=== PATIENT | male | born 1940 | race Caucasian/White ===

== ENCOUNTER 2017-01-31 10:36 | Observation (INO) ==
[2017-01-31] MEDS ORDERED: Naloxone 0.4 MG/ML INJ IVP PRN (16:55)
[2017-01-31] MEDS ORDERED: Acetaminophen 325 MG TABLET PO PRN (16:55)
[2017-01-31] MEDS ORDERED: Ondansetron 4 MG/2 ML VIAL IVP PRN (16:55)
[2017-01-31] MEDS ORDERED: *HR* Morphine 2 MG/ML SYRINGE IVP PRN (16:55)
[2017-01-31] MEDS ORDERED: Aspirin Enteric Coated 81 MG Tablet PO SCH (17:00)
[2017-01-31] MEDS ORDERED: *HR* Dextrose 50 % in Water (Syg) 50 ML SYRINGE IVP PRN (17:01)
[2017-01-31] MEDS ORDERED: Dextrose Gel 15 GM PO PRN ×2 (17:01)
[2017-01-31] MEDS ORDERED: D5% in Water 1,000 ML IVC PRN (17:01)
--- NOTE | 2017-01-31 17:03 | Internal Med History&Physical ---
Date of Encounter: 01/31/17 Time of Encounter: 17:02 Assessment and Plan (1) Urinary retention Current visit: Yes Status: Acute 1 patient awakened approximately 3 AM today was unable to void has history of prostate cancer with radiation treatment has significant radiation complications. Jennings catheter placed we will continue with Jennings, irrigation 2 urology consulted (2) Cystitis with hematuria Current visit: Yes Status: Acute 1 patient has history of prostate cancer with radiation treatment significant radiation complication he awoken this morning and found that his underwear was saturated with blood he was unable to urinate. Jennings catheter was placed urinalysis revealed large amount of blood and nitrates few leuk Estrace, 2+ bacteria. 2. We will obtain urine culture results from [facility] tomorrow 3 we will continue with Rocephin IV 4 urology consultation 5 we will hold ASA for now dt hematuria (3) History of prostate cancer Current visit: No Status: Chronic 1 patient has history of prostate cancer with radiation treatment significant radiation complications. PSA undetectable in December 2015. Urology presently consult and patient will follow up as outpatient (4) COPD (chronic obstructive pulmonary disease) Current visit: No Status: Chronic Patient has history of COPD presently stable he is oxygen at night we will continue with oxygen and maintain SPO2 greater than 92% 2 continue with bronchodilators Qualifiers: COPD type: emphysema Emphysema type: unspecified Qualified Code(s): J43.9 - Emphysema, unspecified (5) Diabetes mellitus Current visit: No Status: Chronic 1 continue with basal and sliding scale insulin Accu-Cheks before meals at bedtime goal is to maintain postprandial less than 180 2 diabetic diet Qualifiers: Diabetes mellitus type: type 2 Diabetes mellitus complication status: without complication Diabetes mellitus skilled nursing insulin use: with skilled nursing use Qualified Code(s): E11.9 - Type 2 diabetes mellitus without complications ; Z79.4 - prison (current) use of insulin (6) Hyperlipidemia Current visit: No Status: Chronic 1continue with statin Qualifiers: Hyperlipidemia type: unspecified Qualified Code(s): E78.5 - Hyperlipidemia , unspecified (7) DVT prophylaxis Current visit: Yes Status: Acute 1 no anticoagulation at this time due to patient has hematuria. Encourage ambulation, SCD Internal Medicine - H&P: HPI Chief complaint: Difficulty urinating blood and urine Admitted From: Hospital to Hospital Transfer Plans for Post Hospital Care: Home History of present illness: Mr. Gardiner is a 77 year old male according to the patient she awoke proximally 3 AM this morning his underwear was saturated with blood. He was unable to initiate a urinary stream. He has had history of hematuria and urinary blockage in the past. He went to [facility] where three-way Jennings was placed and irrigated. Lab work was unremarkable however urinalysis did reveal large mother blood nitrates a few leuk esterase and 2+ bacteria patient was started on a gram of Rocephin IV. He was then transferred to [facility] for further treatment however urology not available he then was transferred to [facility] for further treatment. Upon arrival to the floor patient's catheter no longer draining Dr. Ely's S patient had nursing irrigate Jennings which returned a large clots in urine began to flow. Upon assessment patient's complaining of pain within urethra. Jennings with sabina colored urine. Patient denies any chest pain short of breath nausea vomiting fevers or chills. Dr. Cuello is at bedside, he is replacing Jennings catheter. I reviewed this case with Dr. Ely who agrees with plan. Past Med Surg Social Fam HX - Past Medical History Medical history: CHF, COPD, coronary artery disease, diabetes, kidney stones Psychiatric history: no psych history - Past Surgical History Surgical History: coronary bypass (CABG), prostatectomy, ureteral stent - Social History Smoking Status: Former smoker Smokeless Tobacco Status: No Alcohol use: none Drug use: none - Family History Father History Unknown: Yes Internal Medicine - H&P: Meds Aspirin Enteric Coated [Aspirin EC] 81 mg PO DAILY 05/09/16 [History] Atorvastatin Calcium [Lipitor] 20 mg PO DAILY 05/09/16 [History] Insulin ASPART [Novolog] 10 unit SQ TID 05/09/16 [History] Insulin Glargine,Hum.rec.anlog [Lantus Solostar] 27 unit SQ HS 05/09/16 [History ] Multivitamin [One Daily Essential] 1 tab PO DAILY 05/09/16 [History] Paroxetine HCl [Paroxetine] 40 mg PO DAILY 05/09/16 [History] Potassium Chloride 10 meq PO BID 05/09/16 [History] Pyridoxine HCl [Vitamin B-6] 100 mg PO DAILY 05/09/16 [History] Furosemide [Lasix] 40 mg PO DAILY 01/31/17 [History] Ipratropium/Albuterol Sulfate [Combivent Respimat Inhal [place]] 2 puff IH QID 12/15 [History] Olopatadine HCl [Pataday] 1 drop OP DAILY 01/31/17 [History] Oxycodone HCl/Acetaminophen [Percocet 5-325 mg Tablet] 1 tab PO Q6H PRN [History] Allergies No Known Allergies Allergy (Verified 01/31/17 14:30) All Systems PM: A 10-system review of systems was performed and is negative for pertinent findings except as documented above in the HPI. - Constitutional Constitutional: no chills, no fever(s), no night sweats - EENT Eyes: no change in vision, no discharge, no pain, no photophobia - Cardiovascular Cardiovascular ROS IM: no chest pain, no diaphoresis, no dyspnea, no lightheadedness, no palpitations, no syncope - Respiratory Respiratory: no cough, no dyspnea, no wheezing, no excessive phlegm production - Gastrointestinal Gastrointestinal: no abdominal pain, no diarrhea, no hematemesis, no hematochezia, no melena, no nausea, no vomiting - Genitourinary Genitourinary ROS male: difficulty urinating, hematuria - Musculoskeletal Musculoskeletal ROS IM: no numbness, no tingling - Integumentary Integumentary IM: no rash, no unusual bruising - Neurological Neurological ROS: no confusion, no convulsions, no focal weakness, no numbness, no tingling, no tremor(s) - Hematologic/Lymphatic Hematologic/Lymphatic: no easy bruising - Constitutional Vitals: Temp Pulse Resp BP Pulse Ox 97.7 F 77 18 121/66 93 01/31/17 14:21 01/31/17 14:21 01/31/17 14:21 01/31/17 14:21 01/31/17 14:21 General appearance: Present: mild distress, A&O X 3 - Head Head exam: Present: atraumatic, normocephalic - Eye Eye exam: Present: PERRL, conjuntiva pink, sclera anicteric Pupils: Present: PERRL - Neck Neck exam general surgery: Present: supple, trachea midline. Absent: lymphadenopathy - Respiratory Respiratory exam: Present: CTAB. Absent: accessory muscle use, rales, rhonchi, wheezes - Cardiovascular Cardiovascular exam: Present: RRR, +S1, +S2. Absent: diastolic murmur, gallop, rubs, systolic murmur - GI/Abdominal GI/Abdominal exam: Present: normal bowel sounds, soft, no peritoneal signs. Absent: distended, tenderness - Additional comments: Jennings in place with sabina color urine draining - Extremities Exam Extremities exam: Present: warm, radial pulses palpable and symetrical. Absent : calf tenderness, cyanotic, pedal edema - Neurological Exam Neurological exam: Present: CN II-XII intact, oriented X3, no focal deficits. Absent: pronater drift, facial droop, speech deficit - Skin Skin exam: Present: dry, intact Internal Med - H&P Results - Labs Labs: Lab work from 01/31/2017 [facility] CBC WBC 10.6 hemoglobin 15.5 hematocrit 45.6 platelets 243 Chemistry sodium 143 potassium 4.2 chloride 103I carb 34 BUN 19 creatinine 1.01 glucose 222 GFR is greater than 60 Rustam's PT 13.1 INR 1.11 APTT 24.2
--- NOTE | 2017-01-31 17:17 | Urology - Consult Note ---
Date of Encounter: 01/31/17 Time of Encounter: 17:15 Urology CN:HPI Consult date: 01/31/17 Reason for consult Urology: Gross Hematuria Requesting physician: Roxane Ledbetter History of present illness: Rigoberto is a 77-year-old male with a history of prostate cancer status post radiation therapy. 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 Patient went to an outside hospital last night where a 16-Persian 3-way catheter was placed. Patient was transferred here for further evaluation. Patient is in significant discomfort from poorly draining catheter. Nursing staff had attempted to irrigate the catheter multiple times which was unsuccessful. This is not too surprising given the small diameter of the catheter. Past Med Surg Social Fam HX - Past Medical History Medical history: CHF, COPD, coronary artery disease, diabetes, kidney stones Psychiatric history: no psych history - Past Surgical History Surgical History: coronary bypass (CABG), prostatectomy, ureteral stent - Social History Smoking Status: Former smoker Smokeless Tobacco Status: No Alcohol use: none Drug use: none - Family History Father History Unknown: Yes Medications and Allergies Aspirin Enteric Coated [Aspirin EC] 81 mg PO DAILY 05/09/16 [History] Atorvastatin Calcium [Lipitor] 20 mg PO DAILY 05/09/16 [History] Insulin ASPART [Novolog] 10 unit SQ TID 05/09/16 [History] Insulin Glargine,Hum.rec.anlog [Lantus Solostar] 27 unit SQ HS 05/09/16 [History ] Multivitamin [One Daily Essential] 1 tab PO DAILY 05/09/16 [History] Paroxetine HCl [Paroxetine] 40 mg PO DAILY 05/09/16 [History] Potassium Chloride 10 meq PO BID 05/09/16 [History] Pyridoxine HCl [Vitamin B-6] 100 mg PO DAILY 05/09/16 [History] Furosemide [Lasix] 40 mg PO DAILY 01/31/17 [History] Ipratropium/Albuterol Sulfate [Combivent Respimat Inhal [place]] 2 puff IH QID 12/15 [History] Olopatadine HCl [Pataday] 1 drop OP DAILY 01/31/17 [History] Oxycodone HCl/Acetaminophen [Percocet 5-325 mg Tablet] 1 tab PO Q6H PRN [History] Allergies No Known Allergies Allergy (Verified 01/31/17 14:30) Review of Systems - Constitutional no chills - EENT Nose, mouth and throat: no dizziness - Cardiovascular no chest pain - Respiratory no cough - Gastrointestinal abdominal pain - Genitourinary as per HPI - Musculoskeletal no back pain - Integumentary no erythema Exam Initial Vital Signs Temp Pulse Resp BP Pulse Ox 97.7 F 77 18 121/66 93 01/31/17 14:21 01/31/17 14:21 01/31/17 14:21 01/31/17 14:21 01/31/17 14:21 - General physical appearance Present: well developed - Neck Present: no masses - Respiratory Present: normal respiratory effort - Cardiovascular Cardiovascular exam IM: RRR - Abdomen Abdomen: Present: soft - Genitourinary other (cath in place with clear urine in tubing) Urology Results - Labs Abnormal lab results POC Glucose 174 (58-89) H 01/31/17 14:42 All other labs normal. Consult Discharge Plan - Plan Referrals: NO,PCP [Primary Care Provider] -
--- NOTE | 2017-01-31 17:19 | Event Note ---
Date of Encounter: 01/31/17 Time of Encounter: 17:17 Please attach this note to the consult note as I was unable to enter the assessment and plan secondary to another person being in the chart. Assessment #1 urinary clot retention secondary to radiation cystitis. -Will remove catheter and place larger 3-way catheter. The 16-[place] catheter was removed. Upon removal of this catheter the patient voided across the room and passed multiple clots. I then prepped and draped the patient in sterile fashion. I attempted to place a 24-[place] hematuria catheter which would not pass beyond the meatus. I then had to dilate the patient's urethral meatus to 24-[place]. Then with a significant amount of difficulty in the meatus as well as the prosthetic urethra I was able to pass the 22-[place] 3-way catheter. 500 mL's of clear urine was returned. I then manually irrigated the catheter with a small amount of clots returned. Patient' s urine remained clear on slow irrigation Plan to keep the catheter in place at least overnight.
[2017-01-31] MEDS: (Ipratropium/Albuterol Sulfate [Combivent Respimat In) IH SCH ×2 (18:02→20:19)
[2017-01-31] MEDS: *HR* HYDROcodone/Acet 5/325 mg TABLET PO PRN (18:12)
--- NOTE | 2017-01-31 18:54 | Event Note ---
Date of Encounter: 01/31/17 Time of Encounter: 18:54 Patient seen and examined with nurse practitioner. Agree with assessment and plan.
[2017-01-31] MEDS: Insulin DETEMIR 100 UNIT/ML X5UNITS SQ SCH (20:19)
[2017-01-31] MEDS: Insulin LISPRO 300 UNITS/3 ML VIAL SQ SCH (20:20)
[2017-01-31] MEDS ORDERED: Insulin DETEMIR 100 UNIT/ML X5UNITS SQ SCH (21:00)
[2017-02-01] MEDS ORDERED: 0.9 % Sodium Chloride 1,000 ML ONE ×2 (04:09→04:10)
[2017-02-01] MEDS: *HR* HYDROcodone/Acet 5/325 mg TABLET PO PRN ×4 (04:15→22:44)
[2017-02-01 04:55] LABS: Basophils % 0.4 %; Eosinophils # 0.2 K/mcL (0.0-0.6); Eosinophils % 1.8 %; Hematocrit 44.4 % (37.5-50.1); Hemoglobin 14.4 g/dL (12.9-16.9); Immature Granulocytes % 0.7 % (0-4); Lymphocytes # 1.4 K/mcL (0.6-4.6); Lymphocytes % 13.1 %; Mean Corpuscular HGB Conc 32.4 g/dL (31.6-35.5); Mean Corpuscular Hemoglobin 31.1 pg (28.0-33.3); Mean Corpuscular Volume 95.9 fL (83.0-100.0); Mean Platelet Volume 10.1 fL (9.4-12.4); Monocytes # 1.2 K/mcL (0.0-1.3); Monocytes % 11.5 %; Neutrophils # 7.6 K/mcL (1.6-8.9); Platelet Count 230 K/mcL (140-400); Red Blood Count 4.63 M/mcL (4.19-5.50); Segmented Neutrophils % 72.5 %
[2017-02-01 05:19] LABS: BUN/Creatinine Ratio 22 (6-26); Blood Urea Nitrogen 22 mg/dL (8-26); Calcium 8.9 mg/dL (8.6-10.8); Carbon Dioxide 30 mEq/L (19-29); Chloride 104 mEq/L (98-109); Glucose 154 mg/dL (70-99); Osmolality,Calculated 298 (280-300); Potassium 4.2 mEq/L (3.5-4.5); Sodium 141 mEq/L (136-145); eGFR For African Americans > 60 (> 60); eGFR For Non-African Americans > 60 (> 60)
[2017-02-01] MEDS: Multivit/Ca/Min/Fe/FA 1 TAB TABLET PO SCH (08:10)
[2017-02-01] MEDS: Insulin LISPRO 300 UNITS/3 ML VIAL SQ SCH ×4 (08:28→20:46)
--- NOTE | 2017-02-01 08:33 | Urology Progress Note ---
Date of Encounter: 02/01/17 Time of Encounter: 08:32 - Assessment and Plan (1) Gross hematuria Current Visit: Yes Status: Acute Assessment and plan: continue catheter. will stop irrigation. reeval this afternoon Progress Note Narrative: Patient seen. Urine remained clear overnight Objective Initial Vital Signs Temp Pulse Resp BP Pulse Ox 97.7 F 77 18 121/66 93 01/31/17 14:21 01/31/17 14:21 01/31/17 14:21 01/31/17 14:21 01/31/17 14:21 - General physical appearance Present: well developed - Abdomen Present: soft - Genitourinary Present: other (urine clear in tubing on very slow drip) - Labs 02/01/17 03:53 02/01/17 03:53 Diabetes panel 02/01/17 Range/Units 03:53 Sodium 141 (136-145) mEq/L Potassium 4.2 (3.5-4.5) mEq/L Chloride 104 (98-109) mEq/L Carbon Dioxide 30 H (19-29) mEq/L BUN 22 (8-26) mg/dL Creatinine 0.98 (0.72-1.25) mg/dL Glucose 154 H (70-99) mg/dL Calcium 8.9 (8.6-10.8) mg/dL Calcium panel 02/01/17 Range/Units 03:53 Calcium 8.9 (8.6-10.8) mg/dL Pituitary panel 02/01/17 Range/Units 03:53 Sodium 141 (136-145) mEq/L Potassium 4.2 (3.5-4.5) mEq/L Chloride 104 (98-109) mEq/L Carbon Dioxide 30 H (19-29) mEq/L BUN 22 (8-26) mg/dL Creatinine 0.98 (0.72-1.25) mg/dL Glucose 154 H (70-99) mg/dL Calcium 8.9 (8.6-10.8) mg/dL Adrenal panel 02/01/17 Range/Units 03:53 Sodium 141 (136-145) mEq/L Potassium 4.2 (3.5-4.5) mEq/L Chloride 104 (98-109) mEq/L Carbon Dioxide 30 H (19-29) mEq/L BUN 22 (8-26) mg/dL Creatinine 0.98 (0.72-1.25) mg/dL Glucose 154 H (70-99) mg/dL Calcium 8.9 (8.6-10.8) mg/dL Consult Discharge Plan - Plan Referrals: NO,PCP [Primary Care Provider] -
[2017-02-01] MEDS ORDERED: Furosemide 40 MG TABLET PO SCH (09:00)
[2017-02-01] MEDS: (Ipratropium/Albuterol Sulfate [Combivent Respimat In) IH SCH ×2 (14:12→20:46)
--- NOTE | 2017-02-01 14:39 | Internal Med Progress Note ---
<Shiv Garcia - Last Filed: 02/01/17 15:07> Date of Encounter: 02/01/17 Time of Encounter: 11:00 - Assessment and plan (1) Acute cystitis with hematuria Current Visit: Yes Status: Acute Assessment and plan: Patient had a catheter exchange yesterday currently with a 22-[place]gian three-way catheter. No further clots irrigation from his bladder. Tolerating current bladder irrigation. - Dr. Mane is involved in the patient care. - Continue to monitor urinary output - Continue Rocephin - monitor renal function with am labs. (2) History of prostate cancer Current Visit: No Status: Chronic Assessment and plan: Current problem. Undergoing radiation therapy. (3) COPD (chronic obstructive pulmonary disease) Current Visit: No Status: Chronic Assessment and plan: Known history of COPD, patient wears 3 L nasal cannula oxygen at home. - Continue DuoNeb therapy - Continue oxygen, oxygen saturations between 89 and 92%. - Continue home inhalers. Qualifiers: COPD type: emphysema Emphysema type: unspecified Qualified Code(s): J43.9 - Emphysema, unspecified (4) Diabetes mellitus Current Visit: No Status: Chronic Assessment and plan: Known type II diabetic with current glucose is controlled. Plan: - Continue Levemir 14 units at daily at bedtime -Continue low-dose sliding scale insulin. 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 Continue Qualifiers: Hyperlipidemia type: unspecified Qualified Code(s): E78.5 - Hyperlipidemia , unspecified (6) CAD (coronary artery disease) Current Visit: Yes Status: Acute Assessment and plan: Patient has a history of coronary artery disease with previous DC and CABG. Plan: - Continue atorvastatin 20 mg by mouth daily - Hold aspirin. Qualifiers: Qualified Code(s): I25.10 - Atherosclerotic heart disease of [place] coronary artery without angina pectoris (7) DVT prophylaxis Current Visit: Yes Status: Acute Assessment and plan: Hold anticoagulation as the patient had hematuria - Subjective Interval history: Mr. Gardiner 77-year-old male seen and evaluated patient bedside this morning. He complained of a headache which is resolved after he has been asleep for a limited time. He also complains of discomfort around the glans of his penis after Jennings catheter insertion. He denies any nausea, vomiting, diarrhea or constipation. Denies any abdominal pains chest pains or any other major concerns. He feels that his care has been appropriate and he is glad that there is no more blood in his urine. - Constitutional Vitals: Temp Pulse Resp BP Pulse Ox 98.1 F 59 17 96/53 92 02/01/17 14:09 02/01/17 14:09 02/01/17 14:09 02/01/17 14:02/01/17 14:09 General appearance: Present: mild distress, A&O X 3, morbidly obese - Head Head exam: Present: atraumatic, normocephalic - Eye Eye exam: Present: PERRL, conjuntiva pink, sclera anicteric Pupils: Present: PERRL - ENT ENT exam: Present: mucous membranes moist - Neck Neck exam general surgery: Present: supple, trachea midline. Absent: lymphadenopathy - Respiratory Respiratory exam: Present: CTAB. Absent: accessory muscle use, rales, rhonchi, wheezes - Cardiovascular Cardiovascular exam: Present: RRR, +S1, +S2. Absent: diastolic murmur, gallop, rubs, systolic murmur - GI/Abdominal GI/Abdominal exam: Present: normal bowel sounds, soft. Absent: tenderness, no peritoneal signs - Extremities Exam Extremities exam: Present: warm, radial pulses palpable and symetrical. Absent : calf tenderness, cyanotic, pedal edema - Neurological Exam Neurological exam: Present: alert, oriented X3, no focal deficits. Absent: pronater drift, facial droop, speech deficit - Psychiatric Psychiatric exam: Present: normal affect, normal mood Internal Medicine: Result - Labs CBC & Chem 7: 02/01/17 03:53 02/01/17 03:53 Labs: Short CBC 02/01/17 Range/Units 03:53 WBC 10.5 (4.3-11.1) K/mcL Hgb 14.4 (12.9-16.9) g/dL Hct 44.4 (37.5-50.1) % Plt Count 230 (140-400) K/mcL Neutrophils # 7.6 (1.6-8.9) K/mcL [facility] 02/01/17 03:53 Sodium 141 Potassium 4.2 Chloride 104 Carbon Dioxide 30 H BUN 22 Creatinine 0.98 Glucose 154 H Calcium 8.9 Consult Discharge Plan - Plan Referrals: NO,PCP [Primary Care Provider] - <Giovany Foster - Last Filed: 02/01/17 18:01> Date of Encounter: 02/01/17 - Constitutional Vitals: Temp Pulse Resp BP Pulse Ox 98.1 F 59 17 96/53 92 02/01/17 14:02/01/17 14:02/01/17 14:02/01/17 14:02/01/17 14:09 Internal Medicine: Result - Labs CBC & Chem 7: 02/01/17 03:53 02/01/17 03:53 Labs: Short CBC 02/01/17 Range/Units 03:53 WBC 10.5 (4.3-11.1) K/mcL Hgb 14.4 (12.9-16.9) g/dL Hct 44.4 (37.5-50.1) % Plt Count 230 (140-400) K/mcL Neutrophils # 7.6 (1.6-8.9) K/mcL [facility] 02/01/17 03:53 Sodium 141 Potassium 4.2 Chloride 104 Carbon Dioxide 30 H BUN 22 Creatinine 0.98 Glucose 154 H Calcium 8.9 - Attending Attestation I examined this patient and my medical decision-making was reviewed with the Resident Physician, Dr Garcia. I agree with the documented findings, disposition and treatment plan as described except to the extent set forth below. Patient presented to the hospital with hematuria and blood clots. Currently he has a three-way Jennings catheter and continuous bladder irrigation. Plan: We will hold CBI. Follow-up with urologist. Continue with IV antibiotics.
[2017-02-01] MEDS: Furosemide 40 MG TABLET PO SCH (18:47)
[2017-02-01] MEDS: Insulin DETEMIR 100 UNIT/ML X5UNITS SQ SCH (20:51)
[2017-02-01 22:58] LABS: Bilirubin,Urine Negative (Negative); Blood,Urine Large (Negative); Clarity,Urine Clear (Clear); Color,Urine Yellow (Yellow); Glucose,Urine (UA) Normal (Normal); Ketones,Urine Negative (Negative); Leukocyte Esterase,Urine Moderate (Negative); Nitrite,Urine Negative (Negative); Protein,Urine Negative (Neg-Trace); Urobilinogen,Urine Normal (Normal)
[2017-02-01 23:01] LABS: Bacteria,Urine None Seen per hpf (None-Few); Hyaline Casts,Urine None Seen per lpf (None-Few); RBC,Urine 15-30 per hpf (0-3); Squamous Epithelial Cell,Urine Moderate per lpf (None-Few); WBC,Urine 30-50 per hpf (0-3)
[2017-02-02] MEDS: *HR* HYDROcodone/Acet 5/325 mg TABLET PO PRN ×2 (03:50→09:22)
[2017-02-02 04:08] LABS: Basophils % 0.3 %; Eosinophils # 0.4 K/mcL (0.0-0.6); Eosinophils % 3.6 %; Hematocrit 42.5 % (37.5-50.1); Hemoglobin 13.8 g/dL (12.9-16.9); Immature Granulocytes % 1.1 % (0-4); Lymphocytes # 1.8 K/mcL (0.6-4.6); Lymphocytes % 16.9 %; Mean Corpuscular HGB Conc 32.5 g/dL (31.6-35.5); Mean Corpuscular Hemoglobin 30.9 pg (28.0-33.3); Mean Corpuscular Volume 95.1 fL (83.0-100.0); Mean Platelet Volume 9.9 fL (9.4-12.4); Monocytes # 1.1 K/mcL (0.0-1.3); Monocytes % 10.9 %; Platelet Count 221 K/mcL (140-400); Red Blood Count 4.47 M/mcL (4.19-5.50); Red Cell Distribution Width 13.6 % (11.5-14.5); Segmented Neutrophils % 67.2 %
[2017-02-02 04:19] LABS: Alanine Aminotransferase 21 Units/L (0-55); Albumin 2.7 g/dL (3.5-5.0); Albumin/Globulin Ratio 0.7 (1.1-2.2); Alkaline Phosphatase 66 Units/L (38-126); Aspartate Amino Transferase 19 Units/L (5-34); BUN/Creatinine Ratio 21 (6-26); Bilirubin,Total 0.5 mg/dL (0.2-1.2); Blood Urea Nitrogen 21 mg/dL (8-26); Calcium 8.7 mg/dL (8.6-10.8); Carbon Dioxide 30 mEq/L (19-29); Chloride 99 mEq/L (98-109); Globulin 4.1 g/dL (2.4-3.5); Glucose 128 mg/dL (70-99); Osmolality,Calculated 291 (280-300); Sodium 138 mEq/L (136-145); Total Protein 6.8 g/dL (6.0-8.3); eGFR For African Americans > 60 (> 60); eGFR For Non-African Americans > 60 (> 60)
[2017-02-02 06:36] VITALS: BP 148/66
--- NOTE | 2017-02-02 07:09 | Urology Progress Note ---
Date of Encounter: 02/02/17 Time of Encounter: 07:08 - Assessment and Plan (1) Gross hematuria Current Visit: Yes Status: Acute Assessment and plan: cath to be removed. f/u with Dr. Conway in 2-3 weeks. Usually in [facility] Progress Note Narrative: patient seen. urine clear. order written for cath removal. Objective Initial Vital Signs Temp Pulse Resp BP Pulse Ox 97.7 F 77 18 121/66 93 01/31/17 14:21 01/31/17 14:21 01/31/17 14:01/31/17 14:01/31/17 14:21 - General physical appearance Present: well developed - Abdomen Present: soft - Labs 02/02/17 03:16 02/02/17 03:16 Diabetes panel 02/02/17 Range/Units 03:16 Sodium 138 (136-145) mEq/L Potassium 4.0 (3.5-4.5) mEq/L Chloride 99 (98-109) mEq/L Carbon Dioxide 30 H (19-29) mEq/L BUN 21 (8-26) mg/dL Creatinine 1.00 (0.72-1.25) mg/dL Glucose 128 H (70-99) mg/dL Calcium 8.7 (8.6-10.8) mg/dL AST 19 (5-34) Units/L ALT 21 (0-55) Units/L Alkaline Phosphatase 66 (38-126) Units/L Albumin 2.7 L (3.5-5.0) g/dL Calcium panel 02/02/17 Range/Units 03:16 Calcium 8.7 (8.6-10.8) mg/dL Albumin 2.7 L (3.5-5.0) g/dL Pituitary panel 02/02/17 Range/Units 03:16 Sodium 138 (136-145) mEq/L Potassium 4.0 (3.5-4.5) mEq/L Chloride 99 (98-109) mEq/L Carbon Dioxide 30 H (19-29) mEq/L BUN 21 (8-26) mg/dL Creatinine 1.00 (0.72-1.25) mg/dL Glucose 128 H (70-99) mg/dL Calcium 8.7 (8.6-10.8) mg/dL Adrenal panel 02/02/17 Range/Units 03:16 Sodium 138 (136-145) mEq/L Potassium 4.0 (3.5-4.5) mEq/L Chloride 99 (98-109) mEq/L Carbon Dioxide 30 H (19-29) mEq/L BUN 21 (8-26) mg/dL Creatinine 1.00 (0.72-1.25) mg/dL Glucose 128 H (70-99) mg/dL Calcium 8.7 (8.6-10.8) mg/dL Total Bilirubin 0.5 (0.2-1.2) mg/dL AST 19 (5-34) Units/L ALT 21 (0-55) Units/L Alkaline Phosphatase 66 (38-126) Units/L Albumin 2.7 L (3.5-5.0) g/dL Consult Discharge Plan - Plan Referrals: NO,PCP [Primary Care Provider] -
[2017-02-02] MEDS: Multivit/Ca/Min/Fe/FA 1 TAB TABLET PO SCH (08:06)
[2017-02-02] MEDS: Insulin LISPRO 300 UNITS/3 ML VIAL SQ SCH (08:06)
[2017-02-02] MEDS: Furosemide 40 MG TABLET PO SCH (08:20)
--- NOTE | 2017-02-02 08:28 | Discharge Summary ---
<Shiv Garcia - Last Filed: 02/02/17 13:14> Date of Encounter: 02/02/17 Time of Encounter: 08:26 - Discharge Diagnosis (1) Acute cystitis with hematuria Priority: Primary Status: Acute (2) History of prostate cancer Priority: Secondary Status: Chronic (3) COPD (chronic obstructive pulmonary disease) Priority: Secondary Status: Chronic Qualifiers: COPD type: emphysema Emphysema type: unspecified Qualified Code(s): J43.9 - Emphysema, unspecified (4) Diabetes mellitus Priority: Secondary Status: Chronic Qualifiers: Diabetes mellitus type: type 2 Diabetes mellitus complication status: without complication Diabetes mellitus prison insulin use: with prison use Qualified Code(s): E11.9 - Type 2 diabetes mellitus without complications ; 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 (5) Hyperlipidemia Priority: Secondary Status: Chronic Qualifiers: Hyperlipidemia type: unspecified Qualified Code(s): E78.5 - Hyperlipidemia , unspecified (6) CAD (coronary artery disease) Priority: Secondary Status: Acute Qualifiers: Qualified Code(s): I25.10 - Atherosclerotic heart disease of [place] coronary artery without angina pectoris - Discharge Medications Home Medications: Aspirin Enteric Coated [Aspirin EC] 81 mg PO DAILY 05/09/16 [History] Atorvastatin Calcium [Lipitor] 20 mg PO DAILY 05/09/16 [History] Insulin ASPART [Novolog] 10 unit SQ TID 05/09/16 [History] Insulin Glargine,Hum.rec.anlog [Lantus Solostar] 27 unit SQ HS 05/09/16 [History ] Multivitamin [One Daily Essential] 1 tab PO DAILY 05/09/16 [History] Paroxetine HCl [Paroxetine] 40 mg PO DAILY 05/09/16 [History] Potassium Chloride 10 meq PO BID 05/09/16 [History] Pyridoxine HCl [Vitamin B-6] 100 mg PO DAILY 05/09/16 [History] Furosemide [Lasix] 40 mg PO DAILY 01/31/17 [History] Ipratropium/Albuterol Sulfate [Combivent Respimat Inhal [place]] 2 puff IH QID 12/15 [History] Olopatadine HCl [Pataday] 1 drop OP DAILY 01/31/17 [History] Oxycodone HCl/Acetaminophen [Percocet 5-325 mg Tablet] 1 tab PO Q6H PRN [History] Allergies/Adverse Reactions: Allergies No Known Allergies Allergy (Verified 01/31/17 14:30) Date of admission: 01/31/17 13:35 Primary care physician: PCP NO Consults: 01/31/17 16:56 Consult to Urology [CONS] Routine Consulting Provider: Kaliay Hetal Reason for Consult: hematuria, obstruction Time Notified: 16:57 Call Completed: No Discharging clinician: Shiv Garcia Anticipated date of discharge: 02/02/17 - Patient Status Disposition: Home, Self-Care Condition: Good Functional capacity at discharge: independent ambulation Overall status at discharge: patient is progressing back to baseline - Discharge Instructions Follow Up With: Jorge Luis Rice MD [Non-Partnered Physician] - 02/09/17 2:00 pm Lakhwinder Conway MD [Partnered Physician] - 02/23/17 9:30 am Additional Instructions: Follow-up with her primary care provider the next 3-5 days for reevaluation Follow-up with urology in the next 2-3 weeks If you recurrence of blood in your urine, difficulty voiding you should be seen immediately. - Diet and Activity Activity: increase activity as tolerated Diet: advance to your usual diet Interval History: Mr. Gardiner 77-year-old male past medical history of prostate cancer, CHF, COPD, coronary artery disease, type 2 diabetes and kidney stones admitted with hematuria and difficulty initiating a stream. He was admitted to the general medical floor and urology was consult. After evaluation by urology he underwent placement of a 22-[place] three-way catheter and irrigation of the bladder. He was kept overnight and continued on irrigation which was discontinued the following morning. Continue to have appropriate output without pain, fevers chills sweating chest pain or palpitations. His urine was yellow without noticeable gross blood. His hemoglobin remained stable. He was kept overnight for continued management and treatment for cystitis. He was seen and evaluated at patient bedside on 02/02/2017 and deemed stable for discharge after his Jennings was removed. He is scheduled to follow-up with Dr. Conway in 2-3 weeks. Hospital course: Mr. Gardiner is a 77 year old male - Time Spent with Patient Total time spent providing and/or coordinating discharge services: - Constitutional Vitals: Temp Pulse Resp BP Pulse Ox 98.3 F 69 15 148/66 93 02/02/17 06:32 02/02/17 06:32 02/02/17 06:32 02/02/17 06:32 02/02/17 06:32 General appearance: Present: cooperative, A&O X 3, morbidly obese, pleasant, no acute distress - Head Head exam: Present: atraumatic, normocephalic - Eye Eye exam: Present: PERRL, conjuntiva pink, sclera anicteric Pupils: Present: PERRL - ENT ENT exam: Present: mucous membranes moist - Neck Neck exam general surgery: Present: supple, trachea midline. Absent: lymphadenopathy - Respiratory Respiratory exam: Present: CTAB. Absent: accessory muscle use, rales, rhonchi, wheezes - Cardiovascular Cardiovascular exam: Present: RRR, +S1, +S2. Absent: diastolic murmur, gallop, rubs, systolic murmur - GI/Abdominal GI/Abdominal exam: Present: normal bowel sounds, soft, no peritoneal signs. Absent: distended, tenderness - Extremities Exam Extremities exam: Present: warm, radial pulses palpable and symetrical. Absent : calf tenderness, cyanotic, pedal edema - Neurological Exam Neurological exam: Present: alert, oriented X3, no focal deficits. Absent: pronater drift, facial droop, speech deficit - Psychiatric Psychiatric exam: Present: normal affect, normal mood <Giovany Foster - Last Filed: 02/02/17 18:06> Date of Encounter: 02/02/17 Date of admission: 01/31/17 13:35 Primary care physician: PCP NO Consults: 01/31/17 16:56 Consult to Urology [CONS] Routine Consulting Provider: Urology Hetal Reason for Consult: hematuria, obstruction Time Notified: 16:57 Call Completed: No Hospital course: Mr. Gardiner is a 77 year old male - Time Spent with Patient Total time spent providing and/or coordinating discharge services: - Constitutional Vitals: Temp Pulse Resp BP Pulse Ox 98.3 F 69 15 148/66 93 02/02/17 06:32 02/02/17 06:32 02/02/17 06:32 02/02/17 06:32 02/02/17 06:32 - Attending Attestation I examined this patient and my medical decision-making was reviewed with the Resident Physician, Dr. Garcia. I agree with the documented findings, disposition and treatment plan as described except to the extent set forth below. Patient reports some hematuria this morning after the Jennings was discontinued. On examination I find normal male genitalia with no evidence of lesions. While examining him he has urinary incontinence with a normal urinary jet and clear yellow nonbloody urine. Plan: Hematuria has resolved, we will discharge him home with follow-up with PCP. Follow-up with urology as well.
[2017-02-02] MEDS: (Ipratropium/Albuterol Sulfate [Combivent Respimat In) IH SCH (09:24)
== END 2017-02-02 12:05 | disposition home or self-care (01) ==
LOC: 3ANU
PROVIDERS: ADMIT Nurse Practitioner Acute Care; ATTEND Internal Medicine

== ENCOUNTER 2017-06-17 03:35 | Observation (INO) ==
[2017-06-17] MEDS ORDERED: Acetaminophen 325 MG TABLET PO PRN (11:37)
[2017-06-17] MEDS ORDERED: Naloxone 0.4 MG/ML INJ IVP PRN (11:37)
[2017-06-17] MEDS ORDERED: Ondansetron 4 MG/2 ML VIAL IVP PRN (11:37)
[2017-06-17 12:21] LABS: Basophils % 0.4 %; Eosinophils # 0.3 K/mcL (0.0-0.6); Eosinophils % 3.3 %; Hematocrit 42.8 % (37.5-50.1); Hemoglobin 13.6 g/dL (12.9-16.9); Immature Granulocytes % 0.4 % (0-4); Lymphocytes # 1.2 K/mcL (0.6-4.6); Lymphocytes % 16.5 %; Mean Corpuscular HGB Conc 31.8 g/dL (31.6-35.5); Mean Corpuscular Hemoglobin 30.2 pg (28.0-33.3); Mean Corpuscular Volume 94.9 fL (83.0-100.0); Mean Platelet Volume 9.9 fL (9.4-12.4); Monocytes # 0.9 K/mcL (0.0-1.3); Monocytes % 12.5 %; Platelet Count 189 K/mcL (140-400); Red Blood Count 4.51 M/mcL (4.19-5.50); Red Cell Distribution Width 13.2 % (11.5-14.5); Segmented Neutrophils % 66.9 %
--- NOTE | 2017-06-17 12:28 | Internal Med History&Physical ---
<Shiv Butler - Last Filed: 06/17/17 13:20> Date of Encounter: 06/17/17 Time of Encounter: 11:00 Assessment and Plan (1) Cystitis with hematuria Current visit: Yes Status: Acute Patient presents with cystitis most likely due to radiation treatments on prostate several years ago. Patient reports episodic hematuria with clots that is relieved with catheterization. Patient reports obstructive blood clots and blood-tinged urine when Jennings was first placed at [facility]. Currently, patient's urine is clear and shows no signs of hematuria. Urology consult ordered. Will keep Jennings catheter in place and monitor patient's I&O and daily weight as well as signs of retention and/or hematuria. No CBI at this time due to urine being free of hematuria. (2) Urinary retention Current visit: Yes Status: Acute Patient presents with acute urinary retention and with Jennings catheter placed at [facility] prior to coming to [place]. Patient reports similar symptoms on 02/02/17. Patient has hx of urinary stones but denies any flank or abdominal pain at this time. Retention caused by obstructive blood clots most likely due to episodic cystitis caused by radiation treatments to prostate several years ago. Will leave Jennings in place and monitor patient's I&O and daily weight, urinary retention, and for signs of hematuria. Urology consult ordered and discussed with Dr. Conway who agrees with current plan. Urine culture ordered to r/o UTI. (3) Cellulitis of both lower extremities Current visit: Yes Status: Acute Patient presents with acute celllulitis of the bilateral LEs that he states was diagnosed 3-4 days ago at [facility]. He reports being placed on PO antibiotics but cannot recall what the medication is. There is currently no antibiotic medication on his home med list. Patient placed on IV Ancef 2,000 mg Q8 for infection coverage. Patient has no known allergies. Will monitor patient's follow-up labs. (4) CAD (coronary artery disease) Current visit: Yes Status: Chronic Patient presents with history of CAD with triple bypass surgery performed 7-8 years ago. Patient denies cardiac stent placement. Patient denies chest pain, palpitations, or cardiac symptoms at this time. Will continue patient's Lipitor , PO potassium, and aspirin therapy. Patient placed on continuous cardiac telemetry. Routine EKG and old EKG ordered. Qualifiers: Coronary Disease-Associated Artery/Lesion type: [place] artery [place] vs. transplanted heart: [place] heart Associated angina: without angina Qualified Code(s): I25.10 - Atherosclerotic heart disease of [place] coronary artery without angina pectoris (5) Diabetes mellitus Current visit: Yes Status: Chronic Patient presents with history of chronic diabetes mellitus controlled by insulin. Will continue patient's insulin and add low-dose correction sliding scale insulin with hypoglycemic protocol. Blood glucose monitoring before meals at bedtime. A1c ordered in a.m. labs. 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 (7) Hyperlipidemia Current visit: Yes Status: Chronic Patient presents with history of HLD. Lipid panel ordered in a.m. labs and will continue patient's Lipitor. Qualifiers: Hyperlipidemia type: pure hypercholesterolemia Qualified Code(s): E78.00 - Pure hypercholesterolemia, unspecified; E78.0 - Pure hypercholesterolemia (8) DVT prophylaxis Current visit: Yes Status: Acute Patient placed on DVT prophylaxis due to current admission protocol and bed rest status. Heparin 5,000 units SQ Q8 ordered. Patient to be monitored closely for signs of bleeding due to previous hematuria which is now resolved at this time. Internal Medicine - H&P: HPI Chief complaint: Urinary retention/Hematuria Admitted From: Emergency Dept Plans for Post Hospital Care: Home History of present illness: Mr. Gardiner is a 77 year old male with medical history of prostate cancer with radiation treatments approximately 5 years ago, COPD, diabetes controlled with insulin, HLD, and CAD presents from [facility] with chief complaint of urinary retention and hematuria for the past several days. Patient reports he had Jennings catheter placed at [facility] prior to coming to [place] which resulted in many blood clots being expressed as well as blood-tinged urine. Patient states similar symptoms happened on 02/02/17 with urinary retention and hematuria. Patient also reports he was diagnosed with bilateral cellulitis of the LEs at [facility] and placed on PO antibiotics 3-4 days ago but cannot remember what antibiotic was prescribed (patient is poor historian). Patient reports some SOB but denies recent illness, chest pain, palpitations, fever, chills, nausea, vomiting, diarrhea, constipation, changes in vision, headache, lightheadedness, dizziness, unusual bleeding with the exception of blood clots/ hematuria, per-syncope, or syncope. No labs available from transfer, so stat CBC and CMP ordered. Patient's labs include a temperature of 98.0F, heart rate of 65 bpm, respiration rate 14, BP of 118/69, and SPO2 95% on 3 L via nasal cannula. On examination, patient's HR is RRR and lungs have diminished breath sounds bilaterally but no adventitious sounds on auscultation. No pedal edema, but bilateral cellulitis. Patient is hemodynamically stable with no acute distress reported. Information taken from patient, chart review, and previous medical records. Mr. Gardiner is at moderate risk for further morbidity based on current symptoms and history and will be placed as observation status. Time spent with patient greater than 40 minutes. Past Med Surg Social Fam HX - Past Medical History Source: patient, old records reviewed Medical history: CHF, COPD, coronary artery disease, diabetes, kidney stones Psychiatric history: no psych history - Past Surgical History Surgical History: coronary bypass (CABG), prostatectomy, ureteral stent - Social History Smoking Status: Former smoker Packs per day: 1.5 PPD - Reports qutting 19 years ago Smokeless Tobacco Status: No Alcohol use: none Drug use: none Current living situation: Home Activity Level: Independent ambulation Recent Out of Country Travel Within the Last 8 Weeks: No Exposure or Possible Exposure to Illness During Travel: No - Family History Mother Name: Saira Gardiner Race: Family Member Ethnicity: Non- Living Status: Age at : 63 Cause of : Complications of smoking Hx Family Respiratory Disorders: Yes (Smoker) Father Race: Family Member Ethnicity: Non- Living Status: Age at : 70 Cause of : Old age Hx Family Medical Disorders: No Sister Race: Family Member Ethnicity: Non- Living Status: Still Living Hx Family Medical Disorders: No Internal Medicine - H&P: Meds Aspirin Enteric Coated [Aspirin EC] 81 mg PO DAILY 05/09/16 [History] Atorvastatin Calcium [Lipitor] 20 mg PO DAILY 05/09/16 [History] Insulin ASPART [Novolog] 21 unit SQ TID 05/09/16 [History] Insulin Glargine,Hum.rec.anlog [Lantus Solostar] 31 unit SQ HS 05/09/16 [History ] Multivitamin [One Daily Essential] 1 tab PO DAILY 05/09/16 [History] Paroxetine HCl [Paroxetine] 40 mg PO DAILY 05/09/16 [History] Potassium Chloride 10 meq PO BID 05/09/16 [History] Pyridoxine HCl [Vitamin B-6] 100 mg PO DAILY 05/09/16 [History] Furosemide [Lasix] 40 mg PO DAILY 01/31/17 [History] Ipratropium/Albuterol Sulfate [Combivent Respimat Inhal [place]] 2 puff IH QID 12/15 [History] Olopatadine HCl [Pataday] 1 drop OP DAILY 01/31/17 [History] OxyCODONE/APAP 10/325 [Percocet 10/325 MG] 1 tab PO QID PRN 06/17/17 [History] 3 Allergy/AdvReac Type Severity Reaction Status Date / Time No Known Allergies Allergy Verified 06/17/17 10:40 All Systems PM: A 10-system review of systems was performed and is negative for pertinent findings except as documented above in the HPI. - Constitutional Constitutional: no chills, no fever(s), no night sweats - EENT Eyes: no change in vision, no discharge, no pain, no photophobia Ears: no ear discharge, no ear pain, no tinnitus Nose, mouth and throat: no dysphagia, no nasal discharge, no neck pain, no sore throat - Breasts Breasts: as per HPI - Cardiovascular Cardiovascular ROS IM: no chest pain, no diaphoresis, no dyspnea, no lightheadedness, no palpitations, no syncope - Respiratory Respiratory: as per HPI, dyspnea, dyspnea on exertion - Gastrointestinal Gastrointestinal: no abdominal pain, no diarrhea, no hematemesis, no hematochezia, no melena, no nausea, no vomiting - Genitourinary Genitourinary ROS male: as per HPI, hematuria, other (Obstructive blood clots) - Musculoskeletal Musculoskeletal ROS IM: no numbness, no tingling - Integumentary Integumentary IM: as per HPI, other (Bilateral cellulitis of the LEs), no rash, no unusual bruising - Neurological Neurological ROS: no confusion, no convulsions, no focal weakness, no numbness, no tingling, no tremor(s) - Psychiatric Psychiatric: as per HPI - Endocrine Endocrine IM: as per HPI - Hematologic/Lymphatic Hematologic/Lymphatic: no easy bruising - Allergic/Immunologic Allergic/Immunologic: as per HPI - Constitutional Vitals: Temp Pulse Resp BP Pulse Ox 98.0 F 65 14 118/69 95 06/17/17 11:48 06/17/17 11:48 06/17/17 11:48 06/17/17 11:48 06/17/17 11:48 General appearance: Present: cooperative, A&O X 3, pleasant, no acute distress, obese, answers questions appropriately - Head Head exam: Present: atraumatic, normocephalic - Eye Eye exam: Present: PERRL, conjuntiva pink, sclera anicteric Pupils: Present: PERRL - ENT ENT exam: Present: normal exam, normal external ear exam - Neck Neck exam general surgery: Present: normal inspection, supple, trachea midline. Absent: lymphadenopathy - Respiratory Respiratory exam: Present: decreased breath sounds - Cardiovascular Cardiovascular exam: Present: RRR, +S1, +S2. Absent: diastolic murmur, gallop, rubs, systolic murmur - GI/Abdominal GI/Abdominal exam: Present: normal bowel sounds, soft, no peritoneal signs. Absent: distended, tenderness - Rectal Rectal exam: Present: deferred - Additional comments: exam deferred. - Extremities Exam Extremities exam: Present: warm, radial pulses palpable and symmetrical - Back Exam Back exam: Present: normal inspection - Neurological Exam Neurological exam: Present: CN II-XII intact, oriented X3, no focal deficits. Absent: pronater drift, facial droop, speech deficit - Psychiatric Psychiatric exam: Present: normal affect, normal mood - Skin Skin exam: Present: dry, intact Internal Med - H&P Results - Labs CBC & Chem 7: 06/17/17 12:12 06/17/17 12:12 <Gutierrez Chisholm - Last Filed: 06/17/17 16:16> Date of Encounter: 06/17/17 Internal Medicine - H&P: HPI History of present illness: Mr. Gardiner is a 77 year old male All Systems PM: A 10-system review of systems was performed and is negative for pertinent findings except as documented above in the HPI. - Constitutional Vitals: Temp Pulse Resp BP Pulse Ox 98.1 F 54 18 110/60 96 06/17/17 15:04 06/17/17 15:04 06/17/17 15:39 06/17/17 15:04 06/17/17 15:39 Internal Med - H&P Results - Labs CBC & Chem 7: 06/17/17 12:12 06/17/17 12:12 Labs: Short CBC 06/17/17 Range/Units 12:12 WBC 7.5 (4.3-11.1) K/mcL Hgb 13.6 (12.9-16.9) g/dL Hct 42.8 (37.5-50.1) % Plt Count 189 (140-400) K/mcL Neutrophils # 5.0 (1.6-8.9) K/mcL BMP 06/17/17 12:12 Sodium 137 Potassium 4.7 H Chloride 102 Carbon Dioxide 31 H BUN 17 Creatinine 0.86 Glucose 207 H Calcium 9.0 Liver Function 06/17/17 Range/Units 12:12 Total Bilirubin 0.6 (0.2-1.2) mg/dL AST 22 (5-34) Units/L ALT 20 (0-55) Units/L Alkaline Phosphatase 71 (38-126) Units/L Albumin 2.9 L (3.5-5.0) g/dL - Attending Attestation I personally interviewed and examined this pt. I agree with the finding, assessment and plan of MODESTA Butler. Urology aware, although hematuria has stopped. I am not entirely convinced pt has LE Cellulitis, rather this may be chronic venous insuff which may improve with leg elevation alone
[2017-06-17 12:40] LABS: Alanine Aminotransferase 20 Units/L (0-55); Albumin 2.9 g/dL (3.5-5.0); Albumin/Globulin Ratio 0.7 (1.1-2.2); Alkaline Phosphatase 71 Units/L (38-126); Aspartate Amino Transferase 22 Units/L (5-34); BUN/Creatinine Ratio 20 (6-26); Bilirubin,Total 0.6 mg/dL (0.2-1.2); Blood Urea Nitrogen 17 mg/dL (8-26); Carbon Dioxide 31 mEq/L (19-29); Chloride 102 mEq/L (98-109); Globulin 3.9 g/dL (2.4-3.5); Glucose 207 mg/dL (70-99); Osmolality,Calculated 292 (280-300); Potassium 4.7 mEq/L (3.5-4.5); Sodium 137 mEq/L (136-145); Total Protein 6.8 g/dL (6.0-8.3); eGFR For African Americans > 60 (> 60); eGFR For Non-African Americans > 60 (> 60)
[2017-06-17] MEDS ORDERED: *HR* Dextrose 50 % in Water (Syg) 50 ML SYRINGE IVP PRN (14:36)
[2017-06-17] MEDS ORDERED: Dextrose Gel 15 GM PO PRN ×2 (14:36)
[2017-06-17] MEDS ORDERED: D5% in Water 1,000 ML IVC PRN (14:36)
[2017-06-17] MEDS: Ipratropium/Albuterol Neb 3 ML IH SCH ×2 (15:39→22:55)
[2017-06-17] MEDS: ceFAZolin 2,000 MG in D5% in Water 100 ML IVPB SCH ×2 (16:26→23:49)
[2017-06-17] MEDS: Insulin LISPRO 300 UNITS/3 ML VIAL SQ SCH ×2 (16:45→17:07)
[2017-06-17] MEDS: Pantoprazole 40 MG VIAL IVP SCH (16:46)
[2017-06-17] MEDS ORDERED: Insulin LISPRO 300 UNITS/3 ML VIAL SQ SCH (21:00)
[2017-06-17] MEDS ORDERED: Insulin DETEMIR 100 UNIT/ML X5UNITS SQ SCH (21:00)
[2017-06-17 22:13] LABS: Bilirubin,Urine Negative (Negative); Blood,Urine Large (Negative); Clarity,Urine Clear (Clear); Color,Urine Yellow (Yellow); Glucose,Urine (UA) Normal (Normal); Ketones,Urine Negative (Negative); Leukocyte Esterase,Urine Negative (Negative); Nitrite,Urine Negative (Negative); PH,Urine 6.5 pH Units (5.0-8.0); Protein,Urine Negative (Neg-Trace); Specific Gravity,Urine 1.006 (1.010-1.025); Urobilinogen,Urine Normal (Normal)
[2017-06-17 22:15] LABS: Bacteria,Urine None Seen per hpf (None-Few); Hyaline Casts,Urine None Seen per lpf (None-Few); RBC,Urine 0-3 per hpf (0-3); Squamous Epithelial Cell,Urine None Seen per lpf (None-Few); WBC,Urine 0-3 per hpf (0-3)
[2017-06-17] MEDS: *HR* HYDROcodone/Acet 5/325 mg TABLET PO PRN (22:24)
[2017-06-18] MEDS: Insulin LISPRO 300 UNITS/3 ML VIAL SQ SCH ×4 (00:29→13:04)
[2017-06-18] MEDS: Ipratropium/Albuterol Neb 3 ML IH SCH ×2 (03:46→10:57)
[2017-06-18 04:32] LABS: Basophils % 0.4 %; Eosinophils # 0.3 K/mcL (0.0-0.6); Eosinophils % 2.7 %; Hematocrit 41.8 % (37.5-50.1); Hemoglobin 13.2 g/dL (12.9-16.9); Immature Granulocytes % 0.6 % (0-4); Lymphocytes # 1.5 K/mcL (0.6-4.6); Lymphocytes % 16.3 %; Mean Corpuscular HGB Conc 31.6 g/dL (31.6-35.5); Mean Corpuscular Hemoglobin 30.1 pg (28.0-33.3); Mean Corpuscular Volume 95.4 fL (83.0-100.0); Mean Platelet Volume 10.3 fL (9.4-12.4); Monocytes % 10.4 %; Neutrophils # 6.4 K/mcL (1.6-8.9); Platelet Count 191 K/mcL (140-400); Red Blood Count 4.38 M/mcL (4.19-5.50); Red Cell Distribution Width 13.1 % (11.5-14.5); Segmented Neutrophils % 69.6 %
[2017-06-18 04:33] LABS: INR 1.1; Prothrombin Time 11.7 Seconds (9.4-12.1)
[2017-06-18 04:35] LABS: Activated Partial Thrombo Time 28.3 Seconds (26.0-36.0)
[2017-06-18 04:50] LABS: Alanine Aminotransferase 18 Units/L (0-55); Albumin 2.7 g/dL (3.5-5.0); Albumin/Globulin Ratio 0.7 (1.1-2.2); Alkaline Phosphatase 65 Units/L (38-126); Aspartate Amino Transferase 19 Units/L (5-34); BUN/Creatinine Ratio 18 (6-26); Bilirubin,Total 0.3 mg/dL (0.2-1.2); Blood Urea Nitrogen 21 mg/dL (8-26); Carbon Dioxide 28 mEq/L (19-29); Chloride 101 mEq/L (98-109); Chol/HDL Ratio 4.4 (0-4.9); Cholesterol 119 mg/dL (< 200); Globulin 3.7 g/dL (2.4-3.5); Glucose 269 mg/dL (70-99); HDL Cholesterol 27 mg/dL (40-59); LDL Cholesterol,Calculated 68 mg/dL (0-99); Magnesium 1.8 mg/dL (1.6-2.6); Osmolality,Calculated 294 (280-300); Potassium 4.4 mEq/L (3.5-4.5); Sodium 136 mEq/L (136-145); Total Protein 6.4 g/dL (6.0-8.3); Triglycerides 122 mg/dL (< 150); eGFR For African Americans > 60 (> 60); eGFR For Non-African Americans 59 (> 60)
[2017-06-18 07:02] VITALS: BP 104/53
--- NOTE | 2017-06-18 07:19 | Urology - Consult Note ---
Date of Encounter: 06/18/17 Time of Encounter: 07:17 - Assessment and Plan (1) Gross hematuria Current Visit: Yes Status: Acute Assessment and plan: Gross hematuria and recent history clot retention resolved at this time. Order written to remove Jennings catheter. Okay with discharge from urology standpoint but patient needs to urinate at least 150 mL prior to discharge. Patient admits that constipation and straining is what initiated the recent episode of hematuria. I recommend stool softeners at discharge to prevent constipation. Urology CN:HPI Consult date: 06/18/17 Reason for consult Urology: Gross Hematuria History of present illness: patient well known to urology service. history of prostate cancer treated with external beam radiation therapy. 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 Had been doing well but recently developed constipation with significant straining. This resulted in hematuria and clot retention. He had 2 catheters placed at an outside facility and had a "explosion " of clots but his urine has been clear since arriving at [facility]. Past Med Surg Social Fam HX - Past Medical History Medical history: CHF, COPD, coronary artery disease, diabetes, kidney stones Psychiatric history: no psych history - Past Surgical History Surgical History: coronary bypass (CABG), prostatectomy, ureteral stent - Social History Smoking Status: Former smoker Packs per day: 1.5 PPD - Reports qutting 19 years ago Smokeless Tobacco Status: No Alcohol use: none Drug use: none - Family History Mother Name: Saira Gardiner Race: Family Member Ethnicity: Non- Living Status: Age at : 63 Cause of : Complications of smoking Hx Family Cardiac Disorders: No Hx Family Respiratory Disorders: Yes (Smoker) Hx Family Cancer: No Hx Family GI Disorders: No Hx Family Genitourinary Disorders: No Hx Family Endocrine Disorder: No Hx Family Musculoskeletal Disorders: No Hx Family Neuromuscular Disorders: No Hx Family Neurologic Disorders: No Hx Family HEENT Disorders: No Hx Family Autoimmune Disorders: No Hx Family Reproductive Disorders: No Hx Family Psychosocial Disorders: No Hx Family Medical Disorders: No Father Race: Family Member Ethnicity: Non- Living Status: Age at : 70 Cause of : Old age Hx Family Medical Disorders: No Sister Race: Family Member Ethnicity: Non- Living Status: Still Living Hx Family Medical Disorders: No Medications and Allergies Aspirin Enteric Coated [Aspirin EC] 81 mg PO DAILY 05/09/16 [History] Atorvastatin Calcium [Lipitor] 20 mg PO DAILY 05/09/16 [History] Insulin ASPART [Novolog] 21 unit SQ TID 05/09/16 [History] Insulin Glargine,Hum.rec.anlog [Lantus Solostar] 31 unit SQ HS 05/09/16 [History ] Multivitamin [One Daily Essential] 1 tab PO DAILY 05/09/16 [History] Paroxetine HCl [Paroxetine] 40 mg PO DAILY 05/09/16 [History] Potassium Chloride 10 meq PO BID 05/09/16 [History] Pyridoxine HCl [Vitamin B-6] 100 mg PO DAILY 05/09/16 [History] Furosemide [Lasix] 40 mg PO DAILY 01/31/17 [History] Ipratropium/Albuterol Sulfate [Combivent Respimat Inhal [place]] 2 puff IH QID 12/15 [History] Olopatadine HCl [Pataday] 1 drop OP DAILY 01/31/17 [History] OxyCODONE/APAP 10/325 [Percocet 10/325 MG] 1 tab PO QID PRN 06/17/17 [History] 3 Allergy/AdvReac Type Severity Reaction Status Date / Time No Known Allergies Allergy Verified 06/17/17 10:40 Review of Systems - Constitutional no chills, no fever(s) - EENT Nose, mouth and throat: no dizziness - Cardiovascular no chest pain - Respiratory no cough - Gastrointestinal no abdominal pain - Genitourinary hematuria - Musculoskeletal no back pain - Integumentary no erythema - Neurological no confusion - Psychiatric no anxiety - Hematologic/Lymphatic easy bleeding - Allergic/Immunologic no throat swelling Exam Initial Vital Signs Temp Pulse Resp BP Pulse Ox 98.0 F 72 16 130/65 95 06/17/17 05:36 06/17/17 05:36 06/17/17 05:36 06/17/17 05:36 06/17/17 05:36 - General physical appearance Present: well developed, no distress - Eyes Present: PERRL - ENT Present: normal nares - Neck Present: no masses - Respiratory Present: normal respiratory effort - Cardiovascular Cardiovascular exam IM: RRR - Abdomen Abdomen: Present: soft - Integumentary Present: no rash - Neurologic Present: normal coordination. Absent: disoriented, confused - Additional Findings Jennings catheter in place draining clear urine with no hematuria Urology Results - Labs 06/18/17 03:22 06/18/17 03:22 Abnormal lab results Est GFR (Non-Af Amer) 59 (> 60) L 06/18/17 03:22 Glucose 269 mg/dL (70-99) H 06/18/17 03:22 POC Glucose 121 (58-89) H 06/17/17 21:31 Hemoglobin A1c 9.0 % (-5.6) H 06/18/17 03:22 Albumin 2.7 g/dL (3.5-5.0) L 06/18/17 03:22 Globulin 3.7 g/dL (2.4-3.5) H 06/18/17 03:22 Albumin/Globulin Ratio 0.7 (1.1-2.2) L 06/18/17 03:22 HDL Cholesterol 27 mg/dL (40-59) L 06/18/17 03:22 Ur Specific [place] 1.006 (1.010-1.025) L 06/17/17 20:04 Urine Blood Large (Negative) H 06/17/17 20:04 Diabetes panel 06/17/17 06/18/17 06/18/17 Range/Units 12:12 03:22 03:22 Sodium 137 136 (136-145) mEq/L Potassium 4.7 H 4.4 (3.5-4.5) mEq/L Chloride 102 101 (98-109) mEq/L Carbon Dioxide 31 H 28 (19-29) mEq/L BUN 17 21 (8-26) mg/dL Creatinine 0.86 1.20 (0.72-1.25) mg/dL Glucose 207 H 269 H (70-99) mg/dL Hemoglobin A1c 9.0 H ( - 5.6) % Calcium 9.0 9.0 (8.6-10.8) mg/dL AST 22 19 (5-34) Units/L ALT 20 18 (0-55) Units/L Alkaline Phosphatase 71 65 (38-126) Units/L Albumin 2.9 L 2.7 L (3.5-5.0) g/dL Triglycerides 122 (< 150) mg/dL HDL Cholesterol 27 L (40-59) mg/dL Calcium panel 06/17/17 06/18/17 Range/Units 12:12 03:22 Calcium 9.0 9.0 (8.6-10.8) mg/dL Albumin 2.9 L 2.7 L (3.5-5.0) g/dL Pituitary panel 06/17/17 06/18/17 Range/Units 12:12 03:22 Sodium 137 136 (136-145) mEq/L Potassium 4.7 H 4.4 (3.5-4.5) mEq/L Chloride 102 101 (98-109) mEq/L Carbon Dioxide 31 H 28 (19-29) mEq/L BUN 17 21 (8-26) mg/dL Creatinine 0.86 1.20 (0.72-1.25) mg/dL Glucose 207 H 269 H (70-99) mg/dL Calcium 9.0 9.0 (8.6-10.8) mg/dL Adrenal panel 06/17/17 06/18/17 Range/Units 12:12 03:22 Sodium 137 136 (136-145) mEq/L Potassium 4.7 H 4.4 (3.5-4.5) mEq/L Chloride 102 101 (98-109) mEq/L Carbon Dioxide 31 H 28 (19-29) mEq/L BUN 17 21 (8-26) mg/dL Creatinine 0.86 1.20 (0.72-1.25) mg/dL Glucose 207 H 269 H (70-99) mg/dL Calcium 9.0 9.0 (8.6-10.8) mg/dL Total Bilirubin 0.6 0.3 (0.2-1.2) mg/dL AST 22 19 (5-34) Units/L ALT 20 18 (0-55) Units/L Alkaline Phosphatase 71 65 (38-126) Units/L Albumin 2.9 L 2.7 L (3.5-5.0) g/dL All other labs normal. Consult Discharge Plan - Plan Referrals: Jorge Luis Rice MD [Primary Care Provider] -
[2017-06-18] MEDS: Pantoprazole 40 MG VIAL IVP SCH (07:51)
[2017-06-18] MEDS: ceFAZolin 2,000 MG in D5% in Water 100 ML IVPB SCH (07:53)
[2017-06-18] MEDS: *HR* HYDROcodone/Acet 5/325 mg TABLET PO PRN (08:03)
[2017-06-18] MEDS ORDERED: PATADAY OP SCH (09:00)
[2017-06-18] MEDS ORDERED: Multivit/Ca/Min/Fe/FA 1 TAB TABLET PO SCH (09:00)
[2017-06-18] MEDS ORDERED: Aspirin Enteric Coated 81 MG Tablet PO SCH (09:00)
[2017-06-18] MEDS ORDERED: Pyridoxine (B-6) 50 MG TABLET PO SCH (09:00)
[2017-06-18] MEDS ORDERED: Furosemide 40 MG TABLET PO SCH (09:00)
--- NOTE | 2017-06-18 09:53 | Discharge Summary ---
Date of Encounter: 06/18/17 Time of Encounter: 08:50 - Discharge Diagnosis (1) Acute cystitis with hematuria Priority: Primary Status: Acute Comments: Patient denies pain today. Patient states that he has urinated at least 150 mL' s. He is incontinent, unable to measure in a urinal. Patient was seen by urology and will follow-up in the office. Jennings has been DC'd. (2) History of prostate cancer Priority: Secondary Status: Chronic Comments: Per patient history. Reports that he had surgery that has caused him to be incontinent and have chronic urinary retention and hematuria. He does follow with Dr. Conway. (3) COPD (chronic obstructive pulmonary disease) Priority: Secondary Status: Chronic Comments: Chronic. No acute exacerbation. Continue home medications and 02 prn. Qualifiers: COPD type: emphysema Emphysema type: unspecified Qualified Code(s): J43.9 - Emphysema, unspecified (4) Diabetes mellitus Priority: Secondary Status: Chronic Comments: Uncontrolled. A1c is 9.0. Continue home medications, Accu-Cheks. Patient could benefit from diabetes education. Continue diabetic diet. Follow-up with primary care. 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 Continue home medications. Qualifiers: Hyperlipidemia type: pure hypercholesterolemia Qualified Code(s): E78.00 - Pure hypercholesterolemia, unspecified; E78.0 - Pure hypercholesterolemia (6) DVT prophylaxis Priority: Secondary Status: Acute Comments: Patient has been ambulatory. Heparin subcutaneous. (7) Urinary retention Priority: Secondary Status: Acute Comments: Patient reports with urinary retention. Patient was seen at [facility] in a Jennings catheter was placed. He was sent here for continued evaluation due to gross hematuria with large clots. History of same in the past due to prostate surgery years ago. (8) CAD (coronary artery disease) Priority: Secondary Status: Chronic Comments: History of CABG 78 years ago. Patient denies chest pain. Continue aspirin and Lipitor. Qualifiers: Coronary Disease-Associated Artery/Lesion type: [place] artery [place] vs. transplanted heart: [place] heart Associated angina: without angina Qualified Code(s): I25.10 - Atherosclerotic heart disease of [place] coronary artery without angina pectoris - Discharge Medications Home Medications: Aspirin Enteric Coated [Aspirin EC] 81 mg PO DAILY 05/09/16 [History] Atorvastatin Calcium [Lipitor] 20 mg PO DAILY 05/09/16 [History] Insulin ASPART [Novolog] 21 unit SQ TID 05/09/16 [History] Insulin Glargine,Hum.rec.anlog [Lantus Solostar] 31 unit SQ HS 05/09/16 [History ] Multivitamin [One Daily Essential] 1 tab PO DAILY 05/09/16 [History] Paroxetine HCl [Paroxetine] 40 mg PO DAILY 05/09/16 [History] Potassium Chloride 10 meq PO BID 05/09/16 [History] Pyridoxine HCl [Vitamin B-6] 100 mg PO DAILY 05/09/16 [History] Furosemide [Lasix] 40 mg PO DAILY 01/31/17 [History] Ipratropium/Albuterol Sulfate [Combivent Respimat Inhal [place]] 2 puff IH QID 12/15 [History] Olopatadine HCl [Pataday] 1 drop OP DAILY 01/31/17 [History] OxyCODONE/APAP 10/325 [Percocet 10/325 MG] 1 tab PO QID PRN 06/17/17 [History] Allergies/Adverse Reactions: 3 Allergy/AdvReac Type Severity Reaction Status Date / Time No Known Allergies Allergy Verified 06/17/17 10:40 Procedures/tests Complete & Pending: Procedures Performed prior 72 hours Category Date Time Status ECG 12 lead ECG [ECG] Routine Y 06/17/17 12:36 Ordered Date of admission: 06/17/17 05:05 Primary care physician: Jorge Luis Rice MD Consults: 06/17/17 11:58 Consult to Urology [CONS] Routine Consulting Provider: Urology Hetal Reason for Consult: Patient presents with urinary retention and hematuria. Went to [facility] and sent to [facility]. Similar symptoms on 02/02/17. Jennings placed at [facility]. Many blood clots present when Jennings placed at [facility]. No hematuria noted on exam. Call Completed: Yes Discharging clinician: Tanya Topete Anticipated date of discharge: 06/18/17 - Patient Status Disposition: Home, Self-Care Condition: Good Functional capacity at discharge: independent ambulation Overall status at discharge: patient is back to baseline - Discharge Instructions Follow Up With: Jorge Luis Rice MD [Primary Care Provider] - Additional Instructions: Follow-up through primary care provider in the next 7-10 days for a follow-up visit and reevaluation. Follow-up with Dr. Conway in the [facility] office as scheduled. Resume your normal home medications. Resume your normal activities as tolerated. Discussed your elevated A1c with her provider. You may benefit from following with diabetes education for diet control. Return to the emergency department as needed for any other problems or concerns , if her symptoms return or worsen. If you began having abdominal pain or urinary urinating again, return to the closest emergency department. - Diet and Activity Activity: resume usual activities as tolerated Diet: diabetic diet, low fat, low cholesterol Hospital course: Mr. Gardiner is a 77 year old male with past medical history of coronary artery disease, diabetes, prostate cancer, hyperlipidemia, obesity who presented to the emergency department after being sent here from [facility] with urinary retention and gross hematuria. 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 He had a Jennings catheter placed [facility] prying to coming here which returned many blood clots as well as obvious hematuria. He reports similar symptoms in January of this year with urinary retention and hematuria. He was sent here for further evaluation. He also has bilateral cellulitis lower extremities and is on by mouth antibiotics which she will continue at home. He denies chest pain, palpitations, fever, chills, nausea, vomiting, diarrhea, constipation, headache , lightheaded dizziness, abdominal pain, or presyncope. Been afebrile with no leukocytosis and no abdominal pain. He requires 3 L of oxygen to maintain sats greater than 92%. He does wear oxygen at home. Physical exam was unremarkable as well. Labs revealed hypercholesterolemia of 4.7 which is resolved this morning, 4.4. Creatinine and GFR are within normal limits for patient. Urine showed a large amount of blood but no leukocyte esterase, nitrites or bacteria. No culture was required. He was seen by Dr. Conway, he has signed off and will follow-up with patient in the office. Vitals are stable and within normal limits. Patient states he is ready to go home. He is stable for discharge. - Time Spent with Patient Total time spent providing and/or coordinating discharge services: Less than 30 minutes - Constitutional Vitals: Temp Pulse Resp BP Pulse Ox 97.9 F 70 18 104/53 95 06/18/17 07:01 06/18/17 07:01 06/18/17 07:01 06/18/17 07:01 06/18/17 07:01 General appearance: Present: cooperative, A&O X 3, pleasant, no acute distress, obese, answers questions appropriately - Head Head exam: Present: atraumatic, normal inspection, normocephalic - Eye Eye exam: Present: normal appearance, conjuntiva pink, sclera anicteric - Neck Neck exam general surgery: Present: normal inspection, supple, trachea midline. Absent: lymphadenopathy, tenderness - Respiratory Respiratory exam: Present: CTAB. Absent: accessory muscle use, chest wall tenderness, decreased breath sounds, rales, rhonchi, wheezes - Cardiovascular Cardiovascular exam: Present: RRR, +S1, +S2. Absent: diastolic murmur, gallop, rubs, systolic murmur - GI/Abdominal GI/Abdominal exam: Present: distended, normal bowel sounds, soft. Absent: hernia, tenderness - Extremities Exam Extremities exam: Present: normal capillary refill, pedal edema, warm, radial pulses palpable and symmetrical. Absent: calf tenderness, cyanotic, mottling, tenderness - Neurological Exam Neurological exam: Present: alert, oriented X3. Absent: facial droop, speech deficit - Skin Skin exam: Present: dry, intact, normal color, warm. Absent: rash
== END 2017-06-18 13:20 | disposition home or self-care (01) ==
LOC: 3BNU
PROVIDERS: ADMIT Family Medicine; ATTEND Registered Nurse

== ENCOUNTER 2020-09-30 03:11 | Inpatient (IN) ==
[2020-09-30] MEDS ORDERED: Ondansetron 4 MG/2 ML VIAL IVP PRN (05:48)
[2020-09-30] MEDS ORDERED: D5% in Water 1,000 ML IVC PRN (06:34)
[2020-09-30] MEDS ORDERED: *HR* Dextrose 50 % in Water (Vial) 50 ML VIAL IVP PRN (06:34)
[2020-09-30] MEDS ORDERED: Dextrose Gel 15 GM/37.5 ML TUBE PO PRN ×2 (06:34)
[2020-09-30 06:50] LABS: Hematocrit 41.6 % (37.5-50.1); Hemoglobin 12.5 g/dL (12.9-16.9); INR 1.2; Mean Corpuscular Hemoglobin 28.9 pg (28.0-33.3); Mean Corpuscular Volume 96.1 fL (83.0-100.0); Mean Platelet Volume 10.5 fL (9.4-12.4); Platelet Count 304 K/mcL (140-400); Prothrombin Time 14.1 Seconds (9.4-12.1); Red Blood Count 4.33 M/mcL (4.19-5.50); Red Cell Distribution Width 14.7 % (11.5-14.5); White Blood Count 20.3 K/mcL (4.3-11.1)
[2020-09-30 07:05] LABS: Calcium 9.3 mg/dL (8.6-10.3); Potassium 5.3 mEq/L (3.5-5.1)
[2020-09-30] MEDS: PARoxetine 20 MG TABLET PO SCH (08:26)
[2020-09-30] MEDS: Insulin LISPRO 300 UNITS/3 ML VIAL SUBQ SCH ×4 (08:26→21:06)
[2020-09-30] MEDS: Aspirin Enteric Coated 81 MG Tablet PO SCH (08:26)
[2020-09-30] MEDS: cefTRIAXone 1,000 MG in Water for inj. (sterile) 10 ML IVP SCH (14:56)
[2020-09-30 15:17] LABS: Bilirubin,Urine Negative (Negative); Blood,Urine Large (Negative); Clarity,Urine Turbid (Clear); Color,Urine Red (Yellow); Glucose,Urine (UA) 30 mg/dL (Normal); Ketones,Urine Negative (Negative); Leukocyte Esterase,Urine Large (Negative); Nitrite,Urine Negative (Negative); Protein,Urine >=300 mg/dL (Neg-Trace); Specific Gravity,Urine 1.018 (1.010-1.025); Urobilinogen,Urine Normal (Normal)
[2020-09-30] MEDS: Acetaminophen 325 MG TABLET PO PRN (20:15)
[2020-09-30] MEDS: Insulin DETEMIR 100 UNIT/ML X5UNITS SUBQ SCH (21:06)
[2020-10-01 05:01] LABS: Basophils # 0.1 K/mcL (0.0-0.2); Basophils % 0.2 %; Eosinophils % 0.1 %; Hematocrit 37.4 % (37.5-50.1); Hemoglobin 11.3 g/dL (12.9-16.9); Lymphocytes # 0.8 K/mcL (0.6-4.6); Lymphocytes % 3.2 %; Mean Corpuscular HGB Conc 30.2 g/dL (31.6-35.5); Mean Corpuscular Hemoglobin 29.2 pg (28.0-33.3); Mean Corpuscular Volume 96.6 fL (83.0-100.0); Mean Platelet Volume 11.1 fL (9.4-12.4); Monocytes # 1.1 K/mcL (0.0-1.3); Monocytes % 4.6 %; Neutrophils # 22.1 K/mcL (1.6-8.9); Platelet Count 222 K/mcL (140-400); Red Blood Count 3.87 M/mcL (4.19-5.50); Red Cell Distribution Width 15.4 % (11.5-14.5); Segmented Neutrophils % 90.9 %; White Blood Count 24.3 K/mcL (4.3-11.1)
[2020-10-01 05:21] LABS: Albumin 2.7 g/dL (3.5-5.7); Albumin/Globulin Ratio 0.7 (1.1-2.2); Calcium 8.5 mg/dL (8.6-10.3); Globulin 4.1 g/dL (2.4-3.5); Potassium 6.3 mEq/L (3.5-5.1); Total Protein 6.8 g/dL (6.4-8.9)
[2020-10-01 05:38] LABS: Platelet Estimate Normal (Normal)
[2020-10-01] MEDS ORDERED: Insulin Human Regular 10 UNIT in 0.9 % Sodium Chloride 10 ML IV ONE (08:25)
[2020-10-01] MEDS: Aspirin Enteric Coated 81 MG Tablet PO SCH (08:45)
[2020-10-01] MEDS: cefTRIAXone 1,000 MG in Water for inj. (sterile) 10 ML IVP SCH (08:46)
[2020-10-01] MEDS: PARoxetine 20 MG TABLET PO SCH (08:46)
[2020-10-01] MEDS: Insulin LISPRO 300 UNITS/3 ML VIAL SUBQ SCH ×4 (08:52→20:23)
[2020-10-01 14:40] LABS: Calcium 8.6 mg/dL (8.6-10.3); Potassium 5.4 mEq/L (3.5-5.1)
[2020-10-01 17:13] LABS: Calcium 8.5 mg/dL (8.6-10.3); Potassium 5.1 mEq/L (3.5-5.1)
[2020-10-01] MEDS: Insulin DETEMIR 100 UNIT/ML X5UNITS SUBQ SCH (20:25)
[2020-10-01] MEDS: Acetaminophen 325 MG TABLET PO PRN (23:09)
[2020-10-01] MEDS: Melatonin 3 MG TABLET PO PRN (23:55)
[2020-10-02 04:24] LABS: Protein/Creatinine Ratio,Urine 4.94 mg/mg (0.00-0.20)
[2020-10-02 06:27] LABS: Basophils % 0.2 %; Eosinophils % 0.2 %; Hematocrit 32.6 % (37.5-50.1); Immature Granulocytes % 1.2 % (0-4); Lymphocytes # 0.8 K/mcL (0.6-4.6); Lymphocytes % 4.2 %; Mean Corpuscular HGB Conc 30.7 g/dL (31.6-35.5); Mean Corpuscular Hemoglobin 29.7 pg (28.0-33.3); Mean Corpuscular Volume 96.7 fL (83.0-100.0); Mean Platelet Volume 11.4 fL (9.4-12.4); Monocytes # 1.2 K/mcL (0.0-1.3); Monocytes % 6.4 %; Neutrophils # 15.7 K/mcL (1.6-8.9); Platelet Count 155 K/mcL (140-400); Red Blood Count 3.37 M/mcL (4.19-5.50); Red Cell Distribution Width 15.4 % (11.5-14.5); Segmented Neutrophils % 87.8 %; White Blood Count 17.9 K/mcL (4.3-11.1)
[2020-10-02 06:45] LABS: Albumin 2.4 g/dL (3.5-5.7); Albumin/Globulin Ratio 0.6 (1.1-2.2); Bilirubin,Total 0.7 mg/dL (0.3-1.0); Calcium 8.1 mg/dL (8.6-10.3); Globulin 3.9 g/dL (2.4-3.5); Potassium 3.9 mEq/L (3.5-5.1); Total Protein 6.3 g/dL (6.4-8.9)
[2020-10-02] MEDS: Insulin LISPRO 300 UNITS/3 ML VIAL SUBQ SCH ×4 (07:57→20:31)
[2020-10-02] MEDS: cefTRIAXone 1,000 MG in Water for inj. (sterile) 10 ML IVP SCH (08:04)
[2020-10-02] MEDS: Aspirin Enteric Coated 81 MG Tablet PO SCH (08:04)
[2020-10-02] MEDS: PARoxetine 20 MG TABLET PO SCH (08:04)
[2020-10-02 09:15] LABS: ABG Base Excess 6 mEq/L (-2 to 3); ABG HCO3 33 mEq/L (21-27); ABG Oxygen Saturation 86 % (95-98); ABG PCO2 55 mmHg (35-45); ABG PH 7.39 pH Units (7.32-7.45); ABG PO2 54 mmHg (85-104); ABG TCO2 34 mEq/L (20-26)
[2020-10-02 11:40] LABS: Adenovirus Not Detected (Not Detect); Bordetella Pertussis Not Detected (Not Detect); Chlamydophila pneumoniae Not Detected (Not Detect); Coronavirus 229E Not Detected (Not Detect); Coronavirus HKU1 Not Detected (Not Detect); Coronavirus NL63 Not Detected (Not Detect); Coronavirus OC43 Not Detected (Not Detect); Human Metapneumovirus Not Detected (Not Detect); Human Rhinovirus/Enterovirus Not Detected (Not Detect); Influenza A Subtype 2009 H1 Not Detected (Not Detect); Influenza B Not Detected (Not Detect); Mycoplasma pneumoniae Not Detected (Not Detect); Parainfluenza Virus 1 Not Detected (Not Detect); Parainfluenza Virus 2 Not Detected (Not Detect); Parainfluenza Virus 3 Not Detected (Not Detect); Parainfluenza Virus 4 Not Detected (Not Detect); Respiratory Syncytial Virus Not Detected (Not Detect); SARS-CoV-2 Not Detected (Not Detect)
[2020-10-02] MEDS ORDERED: Furosemide 40 MG/4 ML VIAL IVP ONE (11:42)
[2020-10-02] MEDS: Piperacillin/Tazobactam 3.375 GM in 0.9 % Sodium Chloride Mini Bag 100 ML IVPB SCH ×2 (12:19→17:30)
[2020-10-02] MEDS ORDERED: Perflutren Lipid Microsphere 1.3 ML in 0.9 % Sodium Chloride 8.7 ML IVP PRN (15:39)
[2020-10-02] MEDS: Insulin DETEMIR 100 UNIT/ML X5UNITS SUBQ SCH (20:44)
[2020-10-03] MEDS: Piperacillin/Tazobactam 3.375 GM in 0.9 % Sodium Chloride Mini Bag 100 ML IVPB SCH ×3 (01:18→17:24)
[2020-10-03] MEDS: Acetaminophen 325 MG TABLET PO PRN (02:50)
[2020-10-03 05:04] LABS: Basophils % 0.2 %; Eosinophils # 0.1 K/mcL (0.0-0.6); Eosinophils % 0.5 %; Hematocrit 33.3 % (37.5-50.1); Hemoglobin 10.3 g/dL (12.9-16.9); Immature Granulocytes % 0.9 % (0-4); Lymphocytes # 0.8 K/mcL (0.6-4.6); Lymphocytes % 6.1 %; Mean Corpuscular HGB Conc 30.9 g/dL (31.6-35.5); Mean Corpuscular Hemoglobin 29.3 pg (28.0-33.3); Mean Corpuscular Volume 94.6 fL (83.0-100.0); Mean Platelet Volume 11.4 fL (9.4-12.4); Monocytes # 1.3 K/mcL (0.0-1.3); Monocytes % 10.7 %; Neutrophils # 10.2 K/mcL (1.6-8.9); Platelet Count 157 K/mcL (140-400); Red Blood Count 3.52 M/mcL (4.19-5.50); Red Cell Distribution Width 15.4 % (11.5-14.5); Segmented Neutrophils % 81.6 %; White Blood Count 12.5 K/mcL (4.3-11.1)
[2020-10-03 05:16] LABS: Albumin 2.5 g/dL (3.5-5.7); Albumin/Globulin Ratio 0.6 (1.1-2.2); Bilirubin,Total 0.7 mg/dL (0.3-1.0); Calcium 7.9 mg/dL (8.6-10.3); Globulin 3.9 g/dL (2.4-3.5); Potassium 3.5 mEq/L (3.5-5.1); Total Protein 6.4 g/dL (6.4-8.9)
[2020-10-03] MEDS: Insulin LISPRO 300 UNITS/3 ML VIAL SUBQ SCH ×4 (07:27→19:38)
[2020-10-03] MEDS: Aspirin Enteric Coated 81 MG Tablet PO SCH (07:41)
[2020-10-03] MEDS: PARoxetine 20 MG TABLET PO SCH (07:42)
[2020-10-03] MEDS ORDERED: Albuterol 2.5 MG/3 ML NEBULIZER IH PRN (08:43)
[2020-10-03] MEDS ORDERED: Furosemide 40 MG/4 ML VIAL IVP ONE (11:15)
[2020-10-03] MEDS: Ipratropium/Albuterol Neb 3 ML IH SCH ×4 (12:07→23:27)
[2020-10-03] MEDS: methylPREDNISolone 125 MG/2 ML VIAL IVP SCH (17:23)
[2020-10-03] MEDS: Insulin DETEMIR 100 UNIT/ML X5UNITS SUBQ SCH (21:30)
[2020-10-04] MEDS: Piperacillin/Tazobactam 3.375 GM in 0.9 % Sodium Chloride Mini Bag 100 ML IVPB SCH ×3 (01:35→17:26)
[2020-10-04] MEDS: Ipratropium/Albuterol Neb 3 ML IH SCH ×6 (03:58→22:59)
[2020-10-04] MEDS: methylPREDNISolone 125 MG/2 ML VIAL IVP SCH ×2 (05:22→17:25)
[2020-10-04 05:24] LABS: Basophils % 0.2 %; Hematocrit 33.6 % (37.5-50.1); Hemoglobin 10.5 g/dL (12.9-16.9); Immature Granulocytes % 0.6 % (0-4); Lymphocytes # 0.4 K/mcL (0.6-4.6); Lymphocytes % 6.7 %; Mean Corpuscular HGB Conc 31.3 g/dL (31.6-35.5); Mean Corpuscular Hemoglobin 29.3 pg (28.0-33.3); Mean Corpuscular Volume 93.9 fL (83.0-100.0); Mean Platelet Volume 11.5 fL (9.4-12.4); Monocytes # 0.3 K/mcL (0.0-1.3); Monocytes % 3.9 %; Neutrophils # 5.7 K/mcL (1.6-8.9); Platelet Count 146 K/mcL (140-400); Red Blood Count 3.58 M/mcL (4.19-5.50); Red Cell Distribution Width 15.3 % (11.5-14.5); Segmented Neutrophils % 88.6 %; White Blood Count 6.4 K/mcL (4.3-11.1)
[2020-10-04 05:41] LABS: Calcium 8.1 mg/dL (8.6-10.3); Potassium 3.8 mEq/L (3.5-5.1)
[2020-10-04] MEDS: Aspirin Enteric Coated 81 MG Tablet PO SCH (09:20)
[2020-10-04] MEDS: PARoxetine 20 MG TABLET PO SCH (09:20)
[2020-10-04] MEDS: Insulin LISPRO 300 UNITS/3 ML VIAL SUBQ SCH ×4 (09:22→22:31)
[2020-10-04] MEDS: Furosemide 20 MG TABLET PO SCH (14:48)
[2020-10-04] MEDS ORDERED: Naloxone 0.4 MG/ML INJ IVP PRN (15:58)
[2020-10-04] MEDS: Insulin DETEMIR 100 UNIT/ML X5UNITS SUBQ SCH (22:32)
[2020-10-04] MEDS: Melatonin 3 MG TABLET PO PRN (22:39)
[2020-10-05] MEDS: Piperacillin/Tazobactam 3.375 GM in 0.9 % Sodium Chloride Mini Bag 100 ML IVPB SCH ×3 (01:52→17:18)
[2020-10-05] MEDS: Ipratropium/Albuterol Neb 3 ML IH SCH ×5 (03:26→20:00)
[2020-10-05] MEDS: methylPREDNISolone 125 MG/2 ML VIAL IVP SCH (05:47)
[2020-10-05 06:07] LABS: Basophils % 0.1 %; Hematocrit 32.3 % (37.5-50.1); Hemoglobin 10.2 g/dL (12.9-16.9); Lymphocytes # 0.6 K/mcL (0.6-4.6); Lymphocytes % 4.1 %; Mean Corpuscular HGB Conc 31.6 g/dL (31.6-35.5); Mean Corpuscular Hemoglobin 29.1 pg (28.0-33.3); Mean Corpuscular Volume 92.3 fL (83.0-100.0); Mean Platelet Volume 11.9 fL (9.4-12.4); Monocytes # 0.8 K/mcL (0.0-1.3); Monocytes % 5.3 %; Neutrophils # 13.4 K/mcL (1.6-8.9); Platelet Count 169 K/mcL (140-400); Red Cell Distribution Width 15.3 % (11.5-14.5); Segmented Neutrophils % 89.5 %
[2020-10-05 06:25] LABS: Calcium 8.3 mg/dL (8.6-10.3); Potassium 3.5 mEq/L (3.5-5.1)
[2020-10-05] MEDS: Insulin LISPRO 300 UNITS/3 ML VIAL SUBQ SCH ×4 (10:01→20:27)
[2020-10-05] MEDS: PARoxetine 20 MG TABLET PO SCH (10:02)
[2020-10-05] MEDS: predniSONE 20 MG TABLET PO SCH (10:02)
[2020-10-05] MEDS: Aspirin Enteric Coated 81 MG Tablet PO SCH (10:03)
[2020-10-05] MEDS: Furosemide 20 MG TABLET PO SCH (10:03)
[2020-10-05] MEDS: Metoprolol XL (24 HR) Succ 25 MG TAB.ER.24H PO SCH (12:23)
[2020-10-05] MEDS: Melatonin 3 MG TABLET PO PRN (20:26)
[2020-10-05] MEDS: Insulin DETEMIR 100 UNIT/ML X5UNITS SUBQ SCH (20:27)
[2020-10-06] MEDS: Ipratropium/Albuterol Neb 3 ML IH SCH ×7 (00:12→23:29)
[2020-10-06] MEDS: Piperacillin/Tazobactam 3.375 GM in 0.9 % Sodium Chloride Mini Bag 100 ML IVPB SCH ×3 (02:30→18:19)
[2020-10-06 06:11] LABS: Basophils % 0.2 %; Hematocrit 32.9 % (37.5-50.1); Hemoglobin 10.3 g/dL (12.9-16.9); Immature Granulocytes % 1.2 % (0-4); Lymphocytes # 0.8 K/mcL (0.6-4.6); Lymphocytes % 4.5 %; Mean Corpuscular HGB Conc 31.3 g/dL (31.6-35.5); Mean Corpuscular Hemoglobin 29.1 pg (28.0-33.3); Mean Corpuscular Volume 92.9 fL (83.0-100.0); Mean Platelet Volume 11.7 fL (9.4-12.4); Monocytes # 1.3 K/mcL (0.0-1.3); Monocytes % 6.9 %; Neutrophils # 15.9 K/mcL (1.6-8.9); Platelet Count 192 K/mcL (140-400); Red Blood Count 3.54 M/mcL (4.19-5.50); Red Cell Distribution Width 15.3 % (11.5-14.5); Segmented Neutrophils % 87.2 %; White Blood Count 18.2 K/mcL (4.3-11.1)
[2020-10-06 06:31] LABS: Albumin 2.7 g/dL (3.5-5.7); Albumin/Globulin Ratio 0.7 (1.1-2.2); Bilirubin,Total 0.4 mg/dL (0.3-1.0); Calcium 8.4 mg/dL (8.6-10.3); Globulin 3.8 g/dL (2.4-3.5); Total Protein 6.5 g/dL (6.4-8.9)
[2020-10-06] MEDS: Furosemide 20 MG TABLET PO SCH (09:01)
[2020-10-06] MEDS: Insulin LISPRO 300 UNITS/3 ML VIAL SUBQ SCH ×4 (09:01→21:19)
[2020-10-06] MEDS: Metoprolol XL (24 HR) Succ 25 MG TAB.ER.24H PO SCH (09:01)
[2020-10-06] MEDS: PARoxetine 20 MG TABLET PO SCH (09:01)
[2020-10-06] MEDS: predniSONE 20 MG TABLET PO SCH (09:01)
[2020-10-06] MEDS: Aspirin Enteric Coated 81 MG Tablet PO SCH (09:01)
[2020-10-06] MEDS: Insulin DETEMIR 100 UNIT/ML X5UNITS SUBQ SCH (21:19)
[2020-10-07] MEDS: Ipratropium/Albuterol Neb 3 ML IH SCH ×6 (03:32→23:43)
[2020-10-07] MEDS: Piperacillin/Tazobactam 3.375 GM in 0.9 % Sodium Chloride Mini Bag 100 ML IVPB SCH ×3 (03:47→18:41)
[2020-10-07] MEDS: Melatonin 3 MG TABLET PO PRN ×2 (03:58→20:46)
[2020-10-07 06:29] LABS: Mean Platelet Volume 11.6 fL (9.4-12.4); Nucleated Red Blood Cells 0.1 /100 WBC (0); Red Cell Distribution Width 15.4 % (11.5-14.5)
[2020-10-07 06:30] LABS: Hematocrit 38.5 % (37.5-50.1); Hemoglobin 11.9 g/dL (12.9-16.9); Mean Corpuscular HGB Conc 30.9 g/dL (31.6-35.5); Mean Corpuscular Hemoglobin 28.3 pg (28.0-33.3); Mean Corpuscular Volume 91.7 fL (83.0-100.0); Neutrophils # 24.3 K/mcL (1.6-8.9); Platelet Count 263 K/mcL (140-400); White Blood Count 28.9 K/mcL (4.3-11.1)
[2020-10-07 06:48] LABS: Albumin 2.8 g/dL (3.5-5.7); Albumin/Globulin Ratio 0.7 (1.1-2.2); Bilirubin,Total 0.5 mg/dL (0.3-1.0); Calcium 8.4 mg/dL (8.6-10.3); Globulin 3.9 g/dL (2.4-3.5); Potassium 3.7 mEq/L (3.5-5.1); Total Protein 6.7 g/dL (6.4-8.9)
[2020-10-07 07:08] LABS: Lymphocytes # 2.3 K/mcL (0.6-4.6); Monocytes # 1.2 K/mcL (0.0-1.3)
[2020-10-07 07:09] LABS: Platelet Estimate Normal (Normal); Reactive Lymphocytes Present (Not Present)
[2020-10-07] MEDS: Furosemide 20 MG TABLET PO SCH (10:42)
[2020-10-07] MEDS: Aspirin Enteric Coated 81 MG Tablet PO SCH (10:42)
[2020-10-07] MEDS: predniSONE 20 MG TABLET PO SCH (10:42)
[2020-10-07] MEDS: Insulin LISPRO 300 UNITS/3 ML VIAL SUBQ SCH ×4 (10:43→20:47)
[2020-10-07] MEDS: PARoxetine 20 MG TABLET PO SCH (10:43)
[2020-10-07] MEDS: Metoprolol XL (24 HR) Succ 25 MG TAB.ER.24H PO SCH (10:43)
[2020-10-07] MEDS: Insulin DETEMIR 100 UNIT/ML X5UNITS SUBQ SCH (20:47)
[2020-10-07] MEDS: QUEtiapine Fumarate 25 MG TABLET PO SCH (21:09)
[2020-10-07] MEDS: Budesonide/Formoterol 80/4.5 1 PUFF INH IH SCH (21:43)
[2020-10-08] MEDS: Piperacillin/Tazobactam 3.375 GM in 0.9 % Sodium Chloride Mini Bag 100 ML IVPB SCH ×3 (03:04→19:11)
[2020-10-08 03:44] LABS: Mean Platelet Volume 11.6 fL (9.4-12.4); Red Cell Distribution Width 15.6 % (11.5-14.5)
[2020-10-08 03:46] LABS: Hematocrit 34.3 % (37.5-50.1); Hemoglobin 10.8 g/dL (12.9-16.9); Mean Corpuscular HGB Conc 31.5 g/dL (31.6-35.5); Mean Corpuscular Hemoglobin 29.6 pg (28.0-33.3); Platelet Count 253 K/mcL (140-400); Red Blood Count 3.65 M/mcL (4.19-5.50); White Blood Count 29.7 K/mcL (4.3-11.1)
[2020-10-08 03:47] LABS: Albumin 2.5 g/dL (3.5-5.7); Albumin/Globulin Ratio 0.7 (1.1-2.2); Bilirubin,Total 0.5 mg/dL (0.3-1.0); Globulin 3.4 g/dL (2.4-3.5); Magnesium 2.1 mg/dL (1.6-2.6); Phosphorous 4.1 mg/dL (2.7-4.5); Potassium 3.8 mEq/L (3.5-5.1); Total Protein 5.9 g/dL (6.4-8.9)
[2020-10-08 04:18] LABS: Lymphocytes # 2.4 K/mcL (0.6-4.6); Monocytes # 1.2 K/mcL (0.0-1.3); Neutrophils # 26.1 K/mcL (1.6-8.9); Platelet Estimate Normal (Normal); Reactive Lymphocytes Present (Not Present)
[2020-10-08 04:53] LABS: ABG Base Excess 8 mEq/L (-2 to 3); ABG HCO3 34 mEq/L (21-27); ABG Oxygen Saturation 94 % (95-98); ABG PCO2 54 mmHg (35-45); ABG PH 7.41 pH Units (7.32-7.45); ABG PO2 70 mmHg (85-104); ABG TCO2 36 mEq/L (20-26)
[2020-10-08] MEDS: Ipratropium/Albuterol Neb 3 ML IH SCH ×6 (04:53→23:30)
[2020-10-08 08:41] LABS: Estimated Average Glucose 203 mg/dl; Hemoglobin A1C 8.7 %
[2020-10-08] MEDS: Furosemide 20 MG TABLET PO SCH (09:32)
[2020-10-08] MEDS: Aspirin Enteric Coated 81 MG Tablet PO SCH (09:32)
[2020-10-08] MEDS: PARoxetine 20 MG TABLET PO SCH (09:33)
[2020-10-08] MEDS: Insulin LISPRO 300 UNITS/3 ML VIAL SUBQ SCH ×4 (09:34→20:25)
[2020-10-08] MEDS: Metoprolol XL (24 HR) Succ 25 MG TAB.ER.24H PO SCH (09:35)
[2020-10-08] MEDS ORDERED: Diphenoxylate/Atropine 1 TAB TABLET PO PRN (11:50)
[2020-10-08] MEDS ORDERED: Aquaphor/Maalox 50 GM BOTTLE TP PRN (11:50)
[2020-10-08] MEDS: Budesonide/Formoterol 80/4.5 1 PUFF INH IH SCH ×2 (12:02→23:27)
[2020-10-08] MEDS: QUEtiapine Fumarate 25 MG TABLET PO SCH (20:25)
[2020-10-08] MEDS: Insulin DETEMIR 100 UNIT/ML X5UNITS SUBQ SCH (20:31)
[2020-10-09] MEDS: Piperacillin/Tazobactam 3.375 GM in 0.9 % Sodium Chloride Mini Bag 100 ML IVPB SCH ×2 (03:27→13:17)
[2020-10-09 04:00] LABS: Basophils # 0.1 K/mcL (0.0-0.2); Basophils % 0.4 %; Eosinophils # 0.2 K/mcL (0.0-0.6); Eosinophils % 1.2 %; Hematocrit 31.9 % (37.5-50.1); Immature Granulocytes % 4.6 % (0-4); Lymphocytes # 1.3 K/mcL (0.6-4.6); Lymphocytes % 6.4 %; Mean Corpuscular HGB Conc 31.3 g/dL (31.6-35.5); Mean Corpuscular Hemoglobin 29.1 pg (28.0-33.3); Mean Corpuscular Volume 92.7 fL (83.0-100.0); Mean Platelet Volume 11.4 fL (9.4-12.4); Monocytes # 0.9 K/mcL (0.0-1.3); Monocytes % 4.8 %; Neutrophils # 16.3 K/mcL (1.6-8.9); Platelet Count 246 K/mcL (140-400); Red Blood Count 3.44 M/mcL (4.19-5.50); Red Cell Distribution Width 15.8 % (11.5-14.5); Segmented Neutrophils % 82.6 %; White Blood Count 19.7 K/mcL (4.3-11.1)
[2020-10-09 04:17] LABS: Albumin 2.3 g/dL (3.5-5.7); Bilirubin,Total 0.4 mg/dL (0.3-1.0); Calcium 7.8 mg/dL (8.6-10.3); Magnesium 2.1 mg/dL (1.6-2.6); Phosphorous 3.8 mg/dL (2.7-4.5); Potassium 3.4 mEq/L (3.5-5.1); Total Protein 5.3 g/dL (6.4-8.9)
[2020-10-09 04:18] LABS: Albumin/Globulin Ratio 0.8 (1.1-2.2)
[2020-10-09] MEDS: Ipratropium/Albuterol Neb 3 ML IH SCH ×3 (04:40→11:40)
[2020-10-09] MEDS: Budesonide/Formoterol 80/4.5 1 PUFF INH IH SCH (07:32)
[2020-10-09] MEDS: Metoprolol XL (24 HR) Succ 25 MG TAB.ER.24H PO SCH (07:45)
[2020-10-09] MEDS: Aspirin Enteric Coated 81 MG Tablet PO SCH (07:45)
[2020-10-09] MEDS: PARoxetine 20 MG TABLET PO SCH (07:45)
[2020-10-09] MEDS: Furosemide 20 MG TABLET PO SCH (07:45)
[2020-10-09] MEDS: Insulin LISPRO 300 UNITS/3 ML VIAL SUBQ SCH ×4 (07:46→11:46)
[2020-10-09] MEDS ORDERED: Finasteride 5 MG TABLET PO SCH (09:00)
[2020-10-09] MEDS: Calcium Gluconate 1gm/50mL 1 GM/50 ML BAG IVPB SCH ×2 (09:42→11:38)
[2020-10-09] MEDS ORDERED: *HR* Heparin 5,000 UNIT/ML VIAL SQ SCH (10:00)
[2020-10-09 11:13] VITALS: BP 103/66
== END 2020-10-09 15:02 | DRG 445 ==
LOC: 3BNU → SUATTDRO 05:24
PROVIDERS: ADMIT Internal Medicine; ATTEND Internal Medicine

== ENCOUNTER 2021-05-28 20:09 | Inpatient (IN) ==
[2021-05-29] MEDS ORDERED: Naloxone 0.4 MG/ML INJ IVP PRN (00:36)
[2021-05-29] MEDS ORDERED: Ondansetron 4 MG/2 ML VIAL IVP PRN (00:36)
[2021-05-29] MEDS ORDERED: Acetaminophen 325 MG TABLET PO PRN (00:36)
[2021-05-29] MEDS: 0.9 % Sodium Chloride 1,000 ML IVC SCH (02:23)
[2021-05-29 02:49] LABS: Basophils % 0.3 %; Eosinophils # 0.1 K/mcL (0.0-0.6); Eosinophils % 0.4 %; Hematocrit 20.4 % (37.5-50.1); Hemoglobin 6.5 g/dL (12.9-16.9); Immature Granulocytes % 0.5 % (0-4); Lymphocytes # 1.8 K/mcL (0.6-4.6); Mean Corpuscular HGB Conc 31.9 g/dL (31.6-35.5); Mean Corpuscular Hemoglobin 28.9 pg (28.0-33.3); Mean Corpuscular Volume 90.7 fL (83.0-100.0); Mean Platelet Volume 10.8 fL (9.4-12.4); Monocytes # 1.7 K/mcL (0.0-1.3); Monocytes % 11.5 %; Neutrophils # 11.2 K/mcL (1.6-8.9); Platelet Count 232 K/mcL (140-400); Red Blood Count 2.25 M/mcL (4.19-5.50); Red Cell Distribution Width 14.6 % (11.5-14.5); Segmented Neutrophils % 75.3 %; White Blood Count 14.8 K/mcL (4.3-11.1)
[2021-05-29 03:01] LABS: INR 1.2; Prothrombin Time 13.7 Seconds (9.4-12.1)
[2021-05-29 03:09] LABS: Calcium 8.7 mg/dL (8.6-10.3); Potassium 5.4 mEq/L (3.5-5.1)
[2021-05-29 09:29] LABS: Adenovirus Not Detected (Not Detect); Coronavirus 229E Not Detected (Not Detect); Coronavirus HKU1 Not Detected (Not Detect); Coronavirus NL63 Not Detected (Not Detect); Coronavirus OC43 Not Detected (Not Detect)
[2021-05-29 09:30] LABS: Bordetella Pertussis Not Detected (Not Detect); Chlamydophila pneumoniae Not Detected (Not Detect); Human Metapneumovirus Not Detected (Not Detect); Human Rhinovirus/Enterovirus Not Detected (Not Detect); Influenza A Subtype 2009 H1 Not Detected (Not Detect); Influenza B Not Detected (Not Detect); Mycoplasma pneumoniae Not Detected (Not Detect); Parainfluenza Virus 1 Not Detected (Not Detect); Parainfluenza Virus 2 Not Detected (Not Detect); Parainfluenza Virus 3 Not Detected (Not Detect); Parainfluenza Virus 4 Not Detected (Not Detect); Respiratory Syncytial Virus Not Detected (Not Detect); SARS-CoV-2 Not Detected (Not Detect)
[2021-05-29] MEDS ORDERED: 0.9 % Sodium Chloride 250 ML ONE ×2 (10:33→18:33)
[2021-05-29] MEDS ORDERED: Calcium Gluconate 1gm/50mL 1 GM/50 ML BAG IVPB SCH (11:30)
[2021-05-29] MEDS ORDERED: D5% in Water 1,000 ML IVC PRN (14:57)
[2021-05-29] MEDS ORDERED: Dextrose Gel 15 GM/37.5 ML TUBE PO PRN ×2 (14:57)
[2021-05-29] MEDS ORDERED: *HR* Dextrose 50 % in Water (Vial) 50 ML VIAL IVP PRN (14:57)
[2021-05-29 15:07] LABS: Hematocrit 23.3 % (37.5-50.1); Hemoglobin 7.4 g/dL (12.9-16.9)
[2021-05-29 15:27] LABS: BUN/Creatinine Ratio 32 (6-26); Blood Urea Nitrogen 39 mg/dL (8-23); Calcium 8.5 mg/dL (8.6-10.3); Carbon Dioxide 29 mEq/L (23-29); Chloride 103 mEq/L (98-107); Glucose 105 mg/dL (70-105); Osmolality,Calculated 298 (280-300); Potassium 4.7 mEq/L (3.5-5.1); Sodium 139 mEq/L (136-145); eGFR For African Americans > 60 (> 60); eGFR For Non-African Americans 57 (> 60)
[2021-05-29] MEDS: Calcium Gluconate 1gm/50mL 1 GM/50 ML BAG IVPB SCH ×2 (16:14→18:27)
[2021-05-29] MEDS: Insulin LISPRO 300 UNITS/3 ML VIAL SUBQ SCH ×2 (18:19→21:43)
[2021-05-30 03:49] LABS: BUN/Creatinine Ratio 32 (6-26); Blood Urea Nitrogen 33 mg/dL (8-23); Calcium 8.8 mg/dL (8.6-10.3); Carbon Dioxide 29 mEq/L (23-29); Chloride 102 mEq/L (98-107); Glucose 96 mg/dL (70-105); Osmolality,Calculated 295 (280-300); Potassium 4.4 mEq/L (3.5-5.1); Sodium 139 mEq/L (136-145); eGFR For African Americans > 60 (> 60); eGFR For Non-African Americans > 60 (> 60)
[2021-05-30] MEDS: Insulin LISPRO 300 UNITS/3 ML VIAL SUBQ SCH ×4 (07:17→20:46)
[2021-05-30] MEDS ORDERED: Perflutren Lipid Microsphere 1.3 ML in 0.9 % Sodium Chloride 8.7 ML IVP PRN ×2 (09:03→10:57)
[2021-05-30 10:28] LABS: Hematocrit 26.3 % (37.5-50.1); Hemoglobin 8.4 g/dL (12.9-16.9); Mean Corpuscular HGB Conc 31.9 g/dL (31.6-35.5); Mean Corpuscular Hemoglobin 29.7 pg (28.0-33.3); Mean Corpuscular Volume 92.9 fL (83.0-100.0); Red Blood Count 2.83 M/mcL (4.19-5.50); Red Cell Distribution Width 15.2 % (11.5-14.5); White Blood Count 11.3 K/mcL (4.3-11.1)
[2021-05-30 10:29] LABS: Basophils % 0.3 %; Eosinophils # 0.2 K/mcL (0.0-0.6); Eosinophils % 1.5 %; Immature Granulocytes % 0.9 % (0-4); Lymphocytes # 0.9 K/mcL (0.6-4.6); Lymphocytes % 7.9 %; Mean Platelet Volume 11.2 fL (9.4-12.4); Monocytes # 1.2 K/mcL (0.0-1.3); Monocytes % 10.9 %; Neutrophils # 8.9 K/mcL (1.6-8.9); Platelet Count 217 K/mcL (140-400); Segmented Neutrophils % 78.5 %
[2021-05-30] MEDS: Metoprolol XL (24 HR) Succ 25 MG TAB.ER.24H PO SCH (12:11)
[2021-05-30 19:07] LABS: Hematocrit 26.7 % (37.5-50.1); Hemoglobin 8.4 g/dL (12.9-16.9)
[2021-05-30] MEDS: 0.9 % Sodium Chloride 1,000 ML IVC SCH (19:33)
[2021-05-30 19:38] LABS: Bilirubin,Urine Negative (Negative); Blood,Urine Large (Negative); Clarity,Urine Turbid (Clear); Color,Urine Colorless (Yellow); Glucose,Urine (UA) Normal (Normal); Ketones,Urine Negative (Negative); Leukocyte Esterase,Urine Trace (Negative); Mucus,Urine Few per lpf (None-Few); Nitrite,Urine Negative (Negative); Protein,Urine Negative (Neg-Trace); RBC,Urine TNTC per hpf (0-3); Specific Gravity,Urine 1.006 (1.010-1.025); Urobilinogen,Urine Normal (Normal)
[2021-05-30] MEDS: Budesonide/Formoterol 160/4.5 1 PUFF INH IH SCH (20:24)
[2021-05-30] MEDS: Gabapentin 300 MG CAPSULE PO SCH (20:49)
[2021-05-31 01:48] LABS: Basophils % 0.2 %; Eosinophils # 0.2 K/mcL (0.0-0.6); Eosinophils % 1.6 %; Hemoglobin 8.3 g/dL (12.9-16.9); Immature Granulocytes % 0.4 % (0-4); Lymphocytes % 7.8 %; Mean Corpuscular HGB Conc 30.7 g/dL (31.6-35.5); Mean Corpuscular Hemoglobin 28.6 pg (28.0-33.3); Mean Corpuscular Volume 93.1 fL (83.0-100.0); Mean Platelet Volume 10.6 fL (9.4-12.4); Monocytes # 1.5 K/mcL (0.0-1.3); Monocytes % 11.8 %; Neutrophils # 10.1 K/mcL (1.6-8.9); Platelet Count 227 K/mcL (140-400); Red Cell Distribution Width 14.9 % (11.5-14.5); Segmented Neutrophils % 78.2 %; White Blood Count 12.9 K/mcL (4.3-11.1)
[2021-05-31 02:05] LABS: BUN/Creatinine Ratio 28 (6-26); Blood Urea Nitrogen 30 mg/dL (8-23); Calcium 8.6 mg/dL (8.6-10.3); Carbon Dioxide 33 mEq/L (23-29); Chloride 102 mEq/L (98-107); Glucose 115 mg/dL (70-105); Osmolality,Calculated 295 (280-300); Potassium 4.5 mEq/L (3.5-5.1); Sodium 139 mEq/L (136-145); eGFR For African Americans > 60 (> 60); eGFR For Non-African Americans > 60 (> 60)
[2021-05-31] MEDS: Budesonide/Formoterol 160/4.5 1 PUFF INH IH SCH ×2 (07:17→22:04)
[2021-05-31] MEDS: Metoprolol XL (24 HR) Succ 25 MG TAB.ER.24H PO SCH (07:44)
[2021-05-31] MEDS: Gabapentin 300 MG CAPSULE PO SCH ×2 (07:45→20:47)
[2021-05-31] MEDS: lisinopriL 5 MG TABLET PO SCH (07:45)
[2021-05-31] MEDS: Insulin LISPRO 300 UNITS/3 ML VIAL SUBQ SCH ×4 (09:11→20:47)
[2021-05-31] MEDS: Artificial Tears SOLN 15 ML BOTTLE BOTH EYES SCH (20:48)
[2021-06-01 05:36] LABS: Basophils % 0.3 %; Eosinophils # 0.3 K/mcL (0.0-0.6); Eosinophils % 2.7 %; Hematocrit 24.4 % (37.5-50.1); Hemoglobin 7.4 g/dL (12.9-16.9); Immature Granulocytes % 0.4 % (0-4); Lymphocytes # 1.2 K/mcL (0.6-4.6); Lymphocytes % 11.3 %; Mean Corpuscular HGB Conc 30.3 g/dL (31.6-35.5); Mean Corpuscular Hemoglobin 28.7 pg (28.0-33.3); Mean Corpuscular Volume 94.6 fL (83.0-100.0); Mean Platelet Volume 10.5 fL (9.4-12.4); Monocytes # 1.4 K/mcL (0.0-1.3); Monocytes % 13.1 %; Neutrophils # 7.8 K/mcL (1.6-8.9); Platelet Count 199 K/mcL (140-400); Red Blood Count 2.58 M/mcL (4.19-5.50); Red Cell Distribution Width 14.6 % (11.5-14.5); Segmented Neutrophils % 72.2 %; White Blood Count 10.8 K/mcL (4.3-11.1)
[2021-06-01 05:48] LABS: BUN/Creatinine Ratio 31 (6-26); Blood Urea Nitrogen 40 mg/dL (8-23); Calcium 8.3 mg/dL (8.6-10.3); Carbon Dioxide 31 mEq/L (23-29); Chloride 102 mEq/L (98-107); Glucose 115 mg/dL (70-105); Osmolality,Calculated 297 (280-300); Potassium 4.5 mEq/L (3.5-5.1); Sodium 138 mEq/L (136-145); eGFR For African Americans > 60 (> 60); eGFR For Non-African Americans 55 (> 60)
[2021-06-01] MEDS: Insulin LISPRO 300 UNITS/3 ML VIAL SUBQ SCH ×4 (07:52→21:45)
[2021-06-01] MEDS: Metoprolol XL (24 HR) Succ 25 MG TAB.ER.24H PO SCH (08:41)
[2021-06-01] MEDS: PARoxetine 20 MG TABLET PO SCH (08:41)
[2021-06-01] MEDS: lisinopriL 5 MG TABLET PO SCH (08:42)
[2021-06-01] MEDS: Gabapentin 300 MG CAPSULE PO SCH ×2 (08:42→19:53)
[2021-06-01] MEDS ORDERED: 0.9 % Sodium Chloride 250 ML ONE (10:00)
[2021-06-01] MEDS: Budesonide/Formoterol 160/4.5 1 PUFF INH IH SCH ×2 (10:41→19:47)
[2021-06-01 18:26] LABS: Hemoglobin 8.2 g/dL (12.9-16.9)
[2021-06-01] MEDS: Artificial Tears SOLN 15 ML BOTTLE BOTH EYES SCH (19:54)
[2021-06-01] MEDS ORDERED: Albuterol 2.5 MG/3 ML NEBULIZER IH PRN (22:16)
[2021-06-01] MEDS ORDERED: Benzonatate 100 MG CAPSULE PO PRN (22:16)
[2021-06-02 02:55] LABS: Basophils % 0.3 %; Eosinophils # 0.5 K/mcL (0.0-0.6); Eosinophils % 4.1 %; Hematocrit 26.6 % (37.5-50.1); Hemoglobin 8.1 g/dL (12.9-16.9); Immature Granulocytes % 0.4 % (0-4); Lymphocytes # 1.1 K/mcL (0.6-4.6); Lymphocytes % 9.7 %; Mean Corpuscular HGB Conc 30.5 g/dL (31.6-35.5); Mean Corpuscular Hemoglobin 28.6 pg (28.0-33.3); Mean Platelet Volume 10.6 fL (9.4-12.4); Monocytes # 1.2 K/mcL (0.0-1.3); Monocytes % 10.4 %; Neutrophils # 8.6 K/mcL (1.6-8.9); Platelet Count 216 K/mcL (140-400); Red Blood Count 2.83 M/mcL (4.19-5.50); Red Cell Distribution Width 14.4 % (11.5-14.5); Segmented Neutrophils % 75.1 %; White Blood Count 11.5 K/mcL (4.3-11.1)
[2021-06-02 03:14] LABS: BUN/Creatinine Ratio 35 (6-26); Blood Urea Nitrogen 47 mg/dL (8-23); Calcium 8.3 mg/dL (8.6-10.3); Carbon Dioxide 31 mEq/L (23-29); Chloride 102 mEq/L (98-107); Glucose 143 mg/dL (70-105); Osmolality,Calculated 299 (280-300); Potassium 4.9 mEq/L (3.5-5.1); Sodium 137 mEq/L (136-145); eGFR For African Americans > 60 (> 60); eGFR For Non-African Americans 51 (> 60)
[2021-06-02] MEDS ORDERED: Lidocaine -MPF 2% 2 ML VIAL ONE ×2 (07:17→08:08)
[2021-06-02] MEDS ORDERED: Ondansetron 4 MG/2 ML VIAL ONE (07:17)
[2021-06-02] MEDS ORDERED: *HR* FentaNYL (PF) 100 MCG/2 ML VIAL ONE (07:17)
[2021-06-02] MEDS ORDERED: *HR* Propofol 200 MG/20 ML VIAL IVP ONE (07:17)
[2021-06-02] MEDS ORDERED: Heparin 1,000 UNITS/500 mL 500 ML ONE (07:37)
[2021-06-02] MEDS ORDERED: CeFAZolin 2,000 MG/120 ML BAG IVPB ONE (07:45)
[2021-06-02] MEDS: Insulin LISPRO 300 UNITS/3 ML VIAL SUBQ SCH ×4 (07:46→21:25)
[2021-06-02] MEDS ORDERED: EPHEDrine 50 MG/ML VIAL ONE (08:25)
[2021-06-02] MEDS ORDERED: *HR* Midazolam HCl 2 MG/2 ML VIAL ONE (08:37)
[2021-06-02] MEDS ORDERED: NON-FORMULARY MEDICATION 1 EACH EACH (Atorvastatin Calcium [Lipitor] 20 MG Tablet) PO SCH (09:15)
[2021-06-02] MEDS ORDERED: *HR* FentaNYL (PF) 100 MCG/2 ML VIAL IVP PRN (09:42)
[2021-06-02] MEDS: Budesonide/Formoterol 160/4.5 1 PUFF INH IH SCH ×2 (10:08→21:57)
[2021-06-02] MEDS ORDERED: *HR* Dextrose 50 % in Water (Vial) 50 ML VIAL IVP PRN (10:13)
[2021-06-02] MEDS ORDERED: D5% in Water 1,000 ML IVC PRN (10:13)
[2021-06-02] MEDS ORDERED: Perflutren Lipid Microsphere 1.3 ML in 0.9 % Sodium Chloride 8.7 ML IVP PRN (10:13)
[2021-06-02] MEDS ORDERED: Albuterol 2.5 MG/3 ML NEBULIZER IH PRN (10:13)
[2021-06-02] MEDS ORDERED: Benzonatate 100 MG CAPSULE PO PRN (10:13)
[2021-06-02] MEDS ORDERED: Naloxone 0.4 MG/ML INJ IVP PRN (10:13)
[2021-06-02] MEDS ORDERED: Ondansetron 4 MG/2 ML VIAL IVP PRN (10:13)
[2021-06-02] MEDS ORDERED: Dextrose Gel 15 GM/37.5 ML TUBE PO PRN ×2 (10:13)
[2021-06-02] MEDS: 0.9 % Sodium Chloride 1,000 ML IVC SCH (12:48)
[2021-06-02 15:28] LABS: Hematocrit 28.3 % (37.5-50.1); Hemoglobin 8.6 g/dL (12.9-16.9)
[2021-06-02] MEDS: Metoprolol XL (24 HR) Succ 25 MG TAB.ER.24H PO SCH (20:46)
[2021-06-02] MEDS: PARoxetine 20 MG TABLET PO SCH (20:46)
[2021-06-02] MEDS: Gabapentin 300 MG CAPSULE PO SCH ×2 (20:46→21:09)
[2021-06-02] MEDS: lisinopriL 5 MG TABLET PO SCH (20:46)
[2021-06-02] MEDS: Artificial Tears SOLN 15 ML BOTTLE BOTH EYES SCH (21:12)
[2021-06-02 22:21] LABS: Hematocrit 26.7 % (37.5-50.1); Hemoglobin 8.2 g/dL (12.9-16.9)
[2021-06-03] MEDS: 0.9 % Sodium Chloride 1,000 ML IVC SCH ×2 (01:38→14:36)
[2021-06-03] MEDS: Budesonide/Formoterol 160/4.5 1 PUFF INH IH SCH ×2 (07:41→21:30)
[2021-06-03] MEDS: Gabapentin 300 MG CAPSULE PO SCH ×2 (08:37→22:36)
[2021-06-03] MEDS: Metoprolol XL (24 HR) Succ 25 MG TAB.ER.24H PO SCH (08:38)
[2021-06-03] MEDS: PARoxetine 20 MG TABLET PO SCH (08:38)
[2021-06-03] MEDS: Insulin LISPRO 300 UNITS/3 ML VIAL SUBQ SCH ×4 (08:40→22:29)
[2021-06-03 08:51] LABS: Basophils % 0.1 %; Hematocrit 27.8 % (37.5-50.1); Hemoglobin 8.2 g/dL (12.9-16.9); Immature Granulocytes % 0.6 % (0-4); Lymphocytes # 0.5 K/mcL (0.6-4.6); Lymphocytes % 4.2 %; Mean Corpuscular HGB Conc 29.5 g/dL (31.6-35.5); Mean Corpuscular Hemoglobin 28.4 pg (28.0-33.3); Mean Corpuscular Volume 96.2 fL (83.0-100.0); Mean Platelet Volume 10.2 fL (9.4-12.4); Monocytes # 0.6 K/mcL (0.0-1.3); Neutrophils # 11.5 K/mcL (1.6-8.9); Platelet Count 226 K/mcL (140-400); Red Blood Count 2.89 M/mcL (4.19-5.50); Red Cell Distribution Width 13.9 % (11.5-14.5); Segmented Neutrophils % 90.1 %; White Blood Count 12.8 K/mcL (4.3-11.1)
[2021-06-03] MEDS ORDERED: lisinopriL 5 MG TABLET PO SCH (09:00)
[2021-06-03 09:06] LABS: BUN/Creatinine Ratio 43 (6-26); Blood Urea Nitrogen 53 mg/dL (8-23); Calcium 8.4 mg/dL (8.6-10.3); Chloride 105 mEq/L (98-107); Glucose 207 mg/dL (70-105); Osmolality,Calculated 308 (280-300); Potassium 5.6 mEq/L (3.5-5.1); Sodium 139 mEq/L (136-145); eGFR For African Americans > 60 (> 60); eGFR For Non-African Americans 57 (> 60)
[2021-06-03] MEDS ORDERED: Furosemide 40 MG TABLET PO ONE (09:28)
[2021-06-03 09:58] LABS: Carbon Dioxide 31 mEq/L (23-29)
[2021-06-04] MEDS: Artificial Tears SOLN 15 ML BOTTLE BOTH EYES SCH ×2 (04:01→20:45)
[2021-06-04] MEDS: 0.9 % Sodium Chloride 1,000 ML IVC SCH (04:05)
[2021-06-04] MEDS: Acetaminophen 325 MG TABLET PO PRN ×2 (04:05→15:02)
[2021-06-04 07:27] LABS: BUN/Creatinine Ratio 46 (6-26); Blood Urea Nitrogen 47 mg/dL (8-23); Calcium 7.4 mg/dL (8.6-10.3); Carbon Dioxide 28 mEq/L (23-29); Chloride 110 mEq/L (98-107); Glucose 117 mg/dL (70-105); Osmolality,Calculated 305 (280-300); Potassium 4.3 mEq/L (3.5-5.1); Sodium 141 mEq/L (136-145); eGFR For African Americans > 60 (> 60); eGFR For Non-African Americans > 60 (> 60)
[2021-06-04 07:31] LABS: Basophils % 0.1 %; Eosinophils # 0.1 K/mcL (0.0-0.6); Eosinophils % 0.5 %; Hematocrit 23.8 % (37.5-50.1); Hemoglobin 7.2 g/dL (12.9-16.9); Immature Granulocytes % 0.5 % (0-4); Lymphocytes # 1.3 K/mcL (0.6-4.6); Lymphocytes % 11.4 %; Mean Corpuscular HGB Conc 30.3 g/dL (31.6-35.5); Mean Corpuscular Hemoglobin 28.8 pg (28.0-33.3); Mean Corpuscular Volume 95.2 fL (83.0-100.0); Mean Platelet Volume 10.4 fL (9.4-12.4); Monocytes # 0.9 K/mcL (0.0-1.3); Monocytes % 8.1 %; Neutrophils # 8.8 K/mcL (1.6-8.9); Platelet Count 218 K/mcL (140-400); Segmented Neutrophils % 79.4 %
[2021-06-04] MEDS: Budesonide/Formoterol 160/4.5 1 PUFF INH IH SCH ×2 (07:39→19:28)
[2021-06-04] MEDS: Insulin LISPRO 300 UNITS/3 ML VIAL SUBQ SCH ×4 (08:05→20:45)
[2021-06-04] MEDS: Metoprolol XL (24 HR) Succ 25 MG TAB.ER.24H PO SCH (08:08)
[2021-06-04] MEDS: Gabapentin 300 MG CAPSULE PO SCH ×2 (08:08→20:44)
[2021-06-04] MEDS: PARoxetine 20 MG TABLET PO SCH (08:08)
[2021-06-04] MEDS ORDERED: Furosemide 20 MG/2 ML VIAL IVP ONE ×2 (16:40→18:53)
[2021-06-04] MEDS ORDERED: QUEtiapine Fumarate 25 MG TABLET PO ONE (18:32)
[2021-06-04] MEDS: Ipratropium/Albuterol Neb 3 ML IH SCH ×3 (19:23→23:07)
[2021-06-05 02:56] LABS: Basophils % 0.3 %; Eosinophils # 0.2 K/mcL (0.0-0.6); Hematocrit 26.4 % (37.5-50.1); Hemoglobin 7.7 g/dL (12.9-16.9); Immature Granulocytes % 0.5 % (0-4); Lymphocytes # 1.3 K/mcL (0.6-4.6); Lymphocytes % 15.1 %; Mean Corpuscular HGB Conc 29.2 g/dL (31.6-35.5); Mean Corpuscular Hemoglobin 28.2 pg (28.0-33.3); Mean Corpuscular Volume 96.7 fL (83.0-100.0); Mean Platelet Volume 10.3 fL (9.4-12.4); Monocytes % 11.1 %; Neutrophils # 6.3 K/mcL (1.6-8.9); Platelet Count 213 K/mcL (140-400); Red Blood Count 2.73 M/mcL (4.19-5.50); Red Cell Distribution Width 14.1 % (11.5-14.5); White Blood Count 8.8 K/mcL (4.3-11.1)
[2021-06-05 03:15] LABS: BUN/Creatinine Ratio 47 (6-26); Blood Urea Nitrogen 50 mg/dL (8-23); Calcium 8.3 mg/dL (8.6-10.3); Carbon Dioxide 28 mEq/L (23-29); Chloride 106 mEq/L (98-107); Glucose 146 mg/dL (70-105); Osmolality,Calculated 306 (280-300); Potassium 4.8 mEq/L (3.5-5.1); Sodium 140 mEq/L (136-145); eGFR For African Americans > 60 (> 60); eGFR For Non-African Americans > 60 (> 60)
[2021-06-05] MEDS: Ipratropium/Albuterol Neb 3 ML IH SCH ×6 (03:16→23:35)
[2021-06-05] MEDS: Insulin LISPRO 300 UNITS/3 ML VIAL SUBQ SCH ×4 (07:36→21:27)
[2021-06-05] MEDS: Budesonide/Formoterol 160/4.5 1 PUFF INH IH SCH ×2 (07:57→19:33)
[2021-06-05] MEDS: Metoprolol XL (24 HR) Succ 25 MG TAB.ER.24H PO SCH (11:54)
[2021-06-05] MEDS: Gabapentin 300 MG CAPSULE PO SCH ×2 (11:54→21:23)
[2021-06-05] MEDS: PARoxetine 20 MG TABLET PO SCH (11:54)
[2021-06-05] MEDS: Artificial Tears SOLN 15 ML BOTTLE BOTH EYES SCH (21:31)
[2021-06-06] MEDS: Ipratropium/Albuterol Neb 3 ML IH SCH ×6 (03:20→23:13)
[2021-06-06 05:09] LABS: Basophils % 0.3 %; Eosinophils # 0.3 K/mcL (0.0-0.6); Eosinophils % 2.6 %; Hematocrit 25.7 % (37.5-50.1); Hemoglobin 7.8 g/dL (12.9-16.9); Immature Granulocytes % 0.4 % (0-4); Lymphocytes # 1.2 K/mcL (0.6-4.6); Mean Corpuscular HGB Conc 30.4 g/dL (31.6-35.5); Mean Corpuscular Hemoglobin 28.5 pg (28.0-33.3); Mean Corpuscular Volume 93.8 fL (83.0-100.0); Mean Platelet Volume 10.4 fL (9.4-12.4); Monocytes # 0.8 K/mcL (0.0-1.3); Monocytes % 8.6 %; Neutrophils # 7.4 K/mcL (1.6-8.9); Platelet Count 231 K/mcL (140-400); Red Blood Count 2.74 M/mcL (4.19-5.50); Red Cell Distribution Width 14.1 % (11.5-14.5); Segmented Neutrophils % 76.1 %; White Blood Count 9.7 K/mcL (4.3-11.1)
[2021-06-06 05:21] LABS: BUN/Creatinine Ratio 41 (6-26); Blood Urea Nitrogen 45 mg/dL (8-23); Calcium 8.6 mg/dL (8.6-10.3); Carbon Dioxide 33 mEq/L (23-29); Chloride 104 mEq/L (98-107); Glucose 143 mg/dL (70-105); Osmolality,Calculated 306 (280-300); Potassium 4.7 mEq/L (3.5-5.1); Sodium 141 mEq/L (136-145); eGFR For African Americans > 60 (> 60); eGFR For Non-African Americans > 60 (> 60)
[2021-06-06] MEDS: Insulin LISPRO 300 UNITS/3 ML VIAL SUBQ SCH ×4 (07:29→20:59)
[2021-06-06] MEDS: Gabapentin 300 MG CAPSULE PO SCH ×2 (07:38→21:01)
[2021-06-06] MEDS: PARoxetine 20 MG TABLET PO SCH (07:38)
[2021-06-06] MEDS: Metoprolol XL (24 HR) Succ 25 MG TAB.ER.24H PO SCH (07:38)
[2021-06-06] MEDS: Budesonide/Formoterol 160/4.5 1 PUFF INH IH SCH ×2 (07:40→19:39)
[2021-06-06 13:20] LABS: Hemoglobin 8.2 g/dL (12.9-16.9)
[2021-06-06 18:10] LABS: Hematocrit 26.6 % (37.5-50.1); Hemoglobin 8.1 g/dL (12.9-16.9)
[2021-06-06] MEDS: Artificial Tears SOLN 15 ML BOTTLE BOTH EYES SCH (21:00)
[2021-06-07 00:43] LABS: Basophils % 0.3 %; Eosinophils # 0.3 K/mcL (0.0-0.6); Eosinophils % 2.6 %; Hematocrit 26.4 % (37.5-50.1); Immature Granulocytes % 0.4 % (0-4); Lymphocytes # 1.3 K/mcL (0.6-4.6); Lymphocytes % 13.1 %; Mean Corpuscular HGB Conc 30.3 g/dL (31.6-35.5); Mean Corpuscular Hemoglobin 28.4 pg (28.0-33.3); Mean Corpuscular Volume 93.6 fL (83.0-100.0); Monocytes # 0.8 K/mcL (0.0-1.3); Monocytes % 8.4 %; Neutrophils # 7.4 K/mcL (1.6-8.9); Platelet Count 231 K/mcL (140-400); Red Blood Count 2.82 M/mcL (4.19-5.50); Segmented Neutrophils % 75.2 %; White Blood Count 9.9 K/mcL (4.3-11.1)
[2021-06-07 01:45] LABS: BUN/Creatinine Ratio 37 (6-26); Blood Urea Nitrogen 39 mg/dL (8-23); Calcium 8.6 mg/dL (8.6-10.3); Carbon Dioxide 32 mEq/L (23-29); Chloride 104 mEq/L (98-107); Glucose 139 mg/dL (70-105); Osmolality,Calculated 304 (280-300); Potassium 4.6 mEq/L (3.5-5.1); Sodium 141 mEq/L (136-145); eGFR For African Americans > 60 (> 60); eGFR For Non-African Americans > 60 (> 60)
[2021-06-07] MEDS: Ipratropium/Albuterol Neb 3 ML IH SCH ×4 (04:05→16:56)
[2021-06-07] MEDS: Budesonide/Formoterol 160/4.5 1 PUFF INH IH SCH (07:22)
[2021-06-07] MEDS: Insulin LISPRO 300 UNITS/3 ML VIAL SUBQ SCH ×3 (08:52→17:29)
[2021-06-07] MEDS: Acetaminophen 325 MG TABLET PO PRN (08:52)
[2021-06-07] MEDS: Gabapentin 300 MG CAPSULE PO SCH (08:53)
[2021-06-07] MEDS: PARoxetine 20 MG TABLET PO SCH (08:53)
[2021-06-07] MEDS: Metoprolol XL (24 HR) Succ 25 MG TAB.ER.24H PO SCH (08:53)
[2021-06-07 11:00] LABS: Influenza A PCR Negative (Negative); Influenza B PCR Negative (Negative); Resp. Syncytial Virus PCR Negative (Negative)
[2021-06-07 11:04] LABS: SARS-CoV-2 by PCR (In House) Negative (Negative)
[2021-06-07 15:04] VITALS: BP 115/55; PULSE 64; TEMP 97.8
[2021-06-07 17:27] VITALS: O2SAT 95
== END 2021-06-07 20:06 | DRG 468 ==
LOC: 3ANU → SUATTDRO 05-29 00:23
PROVIDERS: ADMIT Student in an Organized Health Care Education/Training Program; ATTEND Internal Medicine

== ENCOUNTER 2021-07-29 15:14 | Inpatient (IN) ==
[2021-07-29] MEDS ORDERED: Naloxone 0.4 MG/ML INJ IVP PRN (19:29)
[2021-07-29] MEDS ORDERED: Acetaminophen 325 MG TABLET PO PRN (19:29)
[2021-07-29 20:17] LABS: Basophils % 0.4 %; Eosinophils # 0.2 K/mcL (0.0-0.6); Eosinophils % 2.2 %; Hematocrit 28.5 % (37.5-50.1); Hemoglobin 8.5 g/dL (12.9-16.9); Immature Granulocytes % 0.5 % (0-4); Lymphocytes % 10.8 %; Mean Corpuscular HGB Conc 29.8 g/dL (31.6-35.5); Mean Corpuscular Hemoglobin 26.1 pg (28.0-33.3); Mean Corpuscular Volume 87.4 fL (83.0-100.0); Mean Platelet Volume 10.2 fL (9.4-12.4); Monocytes # 0.9 K/mcL (0.0-1.3); Monocytes % 9.3 %; Neutrophils # 7.3 K/mcL (1.6-8.9); Platelet Count 260 K/mcL (140-400); Red Blood Count 3.26 M/mcL (4.19-5.50); Red Cell Distribution Width 15.8 % (11.5-14.5); Segmented Neutrophils % 76.8 %; White Blood Count 9.5 K/mcL (4.3-11.1)
[2021-07-29 20:25] LABS: INR 1.2; Prothrombin Time 13.5 Seconds (9.4-12.1)
[2021-07-29] MEDS ORDERED: Ipratropium/Albuterol Neb 3 ML IH PRN (20:32)
[2021-07-29 20:35] LABS: BUN/Creatinine Ratio 23 (6-26); Blood Urea Nitrogen 26 mg/dL (8-23); Calcium 8.3 mg/dL (8.6-10.3); Carbon Dioxide 35 mEq/L (23-29); Chloride 102 mEq/L (98-107); Glucose 148 mg/dL (70-105); Magnesium 2.1 mg/dL (1.6-2.6); Osmolality,Calculated 296 (280-300); Phosphorous 2.8 mg/dL (2.7-4.5); Potassium 4.1 mEq/L (3.5-5.1); Sodium 139 mEq/L (136-145); eGFR For African Americans > 60 (> 60); eGFR For Non-African Americans > 60 (> 60)
[2021-07-29 21:00] LABS: Troponin I 0.04 ng/mL (< 0.04)
[2021-07-29] MEDS: Lactobacillus 1 EACH CAP.SPRINK PO SCH (21:26)
[2021-07-30] MEDS ORDERED: Perflutren Lipid Microsphere 1.3 ML in 0.9 % Sodium Chloride 8.7 ML IVP PRN (00:24)
[2021-07-30] MEDS: Piperacillin/Tazobactam 3.375 GM in 0.9 % Sodium Chloride Mini Bag 100 ML IVPB SCH ×3 (01:14→18:52)
[2021-07-30 01:18] LABS: Hematocrit 29.3 % (37.5-50.1); Hemoglobin 8.8 g/dL (12.9-16.9); Mean Corpuscular Hemoglobin 26.3 pg (28.0-33.3); Mean Corpuscular Volume 87.5 fL (83.0-100.0); Mean Platelet Volume 10.1 fL (9.4-12.4); Platelet Count 274 K/mcL (140-400); Red Blood Count 3.35 M/mcL (4.19-5.50); Red Cell Distribution Width 15.9 % (11.5-14.5); White Blood Count 9.6 K/mcL (4.3-11.1)
[2021-07-30 01:25] LABS: INR 1.2
[2021-07-30 01:41] LABS: BUN/Creatinine Ratio 21 (6-26); Blood Urea Nitrogen 25 mg/dL (8-23); Calcium 8.2 mg/dL (8.6-10.3); Carbon Dioxide 34 mEq/L (23-29); Chloride 103 mEq/L (98-107); Chol/HDL Ratio 3.6 (0-4.9); Cholesterol 94 mg/dL (< 200); Glucose 143 mg/dL (70-105); HDL Cholesterol 26 mg/dL (40-59); Iron 19 mcg/dL (65-175); LDL Cholesterol,Calculated 50 mg/dL (< 100); Magnesium 2.2 mg/dL (1.6-2.6); Osmolality,Calculated 297 (280-300); Phosphorous 3.4 mg/dL (2.7-4.5); Potassium 4.3 mEq/L (3.5-5.1); Sodium 140 mEq/L (136-145); Triglycerides 90 mg/dL (< 150); eGFR For African Americans > 60 (> 60); eGFR For Non-African Americans 60 (> 60)
[2021-07-30 01:45] LABS: Troponin I 0.04 ng/mL (< 0.04)
[2021-07-30 02:03] LABS: Folate 18.9 ng/mL (3.0-16.0)
[2021-07-30] MEDS ORDERED: Ipratropium/Albuterol Neb 3 ML IH PRN (02:19)
[2021-07-30 02:56] LABS: % Iron Saturation 6 % (20-55); Ferritin 14 ng/mL (20-250); Thyroid Stimulating Hormone 1.613 mcIU/mL (0.340-5.600); Transferrin 216 mg/dL (203-362)
[2021-07-30] MEDS ORDERED: Ipratropium/Albuterol Neb 3 ML IH SCH (04:00)
[2021-07-30 05:55] LABS: Estimated Average Glucose 137 mg/dl; Hemoglobin A1C 6.4 %
[2021-07-30] MEDS: Chlorhexidine Rinse 15 ML MOUTHWASH MM SCH ×2 (09:41→19:44)
[2021-07-30] MEDS: Multivit/Ca/Min/Fe/FA 1 TAB TABLET PO SCH (09:41)
[2021-07-30] MEDS: Lactobacillus 1 EACH CAP.SPRINK PO SCH ×2 (09:42→19:44)
[2021-07-30] MEDS: *HR* HYDROcodone/Acet 5/325 mg TABLET PO PRN (09:53)
[2021-07-30] MEDS: Budesonide/Formoterol 160/4.5 1 PUFF INH IH SCH ×2 (11:36→20:38)
[2021-07-30] MEDS: Gabapentin 300 MG CAPSULE PO SCH (19:44)
[2021-07-30] MEDS ORDERED: Budesonide/Formoterol 160/4.5 1 PUFF INH IH SCH (22:00)
[2021-07-31] MEDS: Piperacillin/Tazobactam 3.375 GM in 0.9 % Sodium Chloride Mini Bag 100 ML IVPB SCH ×3 (00:53→17:35)
[2021-07-31 01:25] LABS: Hematocrit 29.2 % (37.5-50.1); Hemoglobin 8.5 g/dL (12.9-16.9)
[2021-07-31] MEDS: Budesonide/Formoterol 160/4.5 1 PUFF INH IH SCH ×2 (07:32→20:41)
[2021-07-31] MEDS: Furosemide 20 MG TABLET PO SCH (10:03)
[2021-07-31] MEDS: PARoxetine 20 MG TABLET PO SCH (10:03)
[2021-07-31] MEDS: Multivit/Ca/Min/Fe/FA 1 TAB TABLET PO SCH (10:03)
[2021-07-31] MEDS: Lactobacillus 1 EACH CAP.SPRINK PO SCH ×2 (10:03→19:47)
[2021-07-31] MEDS: Gabapentin 300 MG CAPSULE PO SCH ×2 (10:03→19:46)
[2021-07-31] MEDS: Chlorhexidine Rinse 15 ML MOUTHWASH MM SCH ×2 (10:03→19:46)
[2021-08-01] MEDS: Piperacillin/Tazobactam 3.375 GM in 0.9 % Sodium Chloride Mini Bag 100 ML IVPB SCH ×3 (00:51→14:54)
[2021-08-01] MEDS: Budesonide/Formoterol 160/4.5 1 PUFF INH IH SCH ×2 (07:54→20:11)
[2021-08-01] MEDS: Multivit/Ca/Min/Fe/FA 1 TAB TABLET PO SCH (08:05)
[2021-08-01] MEDS: PARoxetine 20 MG TABLET PO SCH (08:05)
[2021-08-01] MEDS: Gabapentin 300 MG CAPSULE PO SCH ×2 (08:05→19:53)
[2021-08-01] MEDS: Furosemide 20 MG TABLET PO SCH (08:05)
[2021-08-01] MEDS: Lactobacillus 1 EACH CAP.SPRINK PO SCH ×2 (08:05→19:53)
[2021-08-01] MEDS: Chlorhexidine Rinse 15 ML MOUTHWASH MM SCH ×2 (08:09→19:53)
[2021-08-01 09:31] LABS: Hematocrit 27.5 % (37.5-50.1)
[2021-08-01] MEDS ORDERED: Isovue-370 500 ML BOTTLE IVP ONE ×2 (16:28→19:31)
[2021-08-01] MEDS ORDERED: *HR* Belladonna Alkaloids/Opium 30 MG RECTAL SUPPOSITORY RC PRN (17:49)
[2021-08-01 18:08] LABS: Hematocrit 24.5 % (37.5-50.1); Hemoglobin 7.4 g/dL (12.9-16.9)
[2021-08-02] MEDS: Piperacillin/Tazobactam 3.375 GM in 0.9 % Sodium Chloride Mini Bag 100 ML IVPB SCH ×4 (00:04→23:53)
[2021-08-02 06:52] LABS: Mean Platelet Volume 10.5 fL (9.4-12.4)
[2021-08-02 06:54] LABS: Hematocrit 25.5 % (37.5-50.1); Hemoglobin 7.7 g/dL (12.9-16.9); Mean Corpuscular HGB Conc 30.2 g/dL (31.6-35.5); Mean Corpuscular Hemoglobin 26.4 pg (28.0-33.3); Mean Corpuscular Volume 87.3 fL (83.0-100.0); Platelet Count 222 K/mcL (140-400); Red Blood Count 2.92 M/mcL (4.19-5.50); White Blood Count 9.7 K/mcL (4.3-11.1)
[2021-08-02] MEDS: Budesonide/Formoterol 160/4.5 1 PUFF INH IH SCH ×2 (07:55→21:08)
[2021-08-02] MEDS: Gabapentin 300 MG CAPSULE PO SCH ×2 (08:25→20:49)
[2021-08-02] MEDS: PARoxetine 20 MG TABLET PO SCH (08:25)
[2021-08-02] MEDS: Chlorhexidine Rinse 15 ML MOUTHWASH MM SCH ×2 (08:25→20:50)
[2021-08-02] MEDS: Multivit/Ca/Min/Fe/FA 1 TAB TABLET PO SCH (08:26)
[2021-08-02] MEDS: Furosemide 20 MG TABLET PO SCH (08:26)
[2021-08-02] MEDS: Lactobacillus 1 EACH CAP.SPRINK PO SCH ×2 (08:26→20:49)
[2021-08-02] MEDS ORDERED: Aspirin 81 MG TAB.CHEW PO SCH (09:00)
[2021-08-03 06:29] LABS: Hemoglobin 7.9 g/dL (12.9-16.9); Mean Corpuscular HGB Conc 29.3 g/dL (31.6-35.5); Mean Corpuscular Hemoglobin 25.8 pg (28.0-33.3); Mean Corpuscular Volume 88.2 fL (83.0-100.0); Mean Platelet Volume 10.4 fL (9.4-12.4); Platelet Count 227 K/mcL (140-400); Red Blood Count 3.06 M/mcL (4.19-5.50); Red Cell Distribution Width 16.3 % (11.5-14.5); White Blood Count 9.8 K/mcL (4.3-11.1)
[2021-08-03 06:50] LABS: BUN/Creatinine Ratio 26 (6-26); Blood Urea Nitrogen 36 mg/dL (8-23); Calcium 8.7 mg/dL (8.6-10.3); Carbon Dioxide 31 mEq/L (23-29); Chloride 106 mEq/L (98-107); Glucose 139 mg/dL (70-105); Osmolality,Calculated 301 (280-300); Potassium 4.8 mEq/L (3.5-5.1); Sodium 140 mEq/L (136-145); eGFR For African Americans > 60 (> 60); eGFR For Non-African Americans 50 (> 60)
[2021-08-03] MEDS: Piperacillin/Tazobactam 3.375 GM in 0.9 % Sodium Chloride Mini Bag 100 ML IVPB SCH ×2 (07:22→15:32)
[2021-08-03] MEDS: Gabapentin 300 MG CAPSULE PO SCH ×2 (07:23→20:43)
[2021-08-03] MEDS: Multivit/Ca/Min/Fe/FA 1 TAB TABLET PO SCH (07:23)
[2021-08-03] MEDS: Furosemide 20 MG TABLET PO SCH (07:23)
[2021-08-03] MEDS: Chlorhexidine Rinse 15 ML MOUTHWASH MM SCH ×2 (07:23→20:44)
[2021-08-03] MEDS: PARoxetine 20 MG TABLET PO SCH (07:23)
[2021-08-03] MEDS: Lactobacillus 1 EACH CAP.SPRINK PO SCH ×2 (07:23→20:44)
[2021-08-03] MEDS ORDERED: Lidocaine/EPI 1:100k 1% 50 ML VIAL ONE (10:06)
[2021-08-03] MEDS ORDERED: 0.9 % Sodium Chloride 500 ML ONE ×2 (10:06→12:14)
[2021-08-03] MEDS ORDERED: *HR* Midazolam HCl 2 MG/2 ML VIAL IVP ONE (11:12)
[2021-08-03] MEDS ORDERED: *HR* FentaNYL (PF) 100 MCG/2 ML VIAL IVP ONE (11:12)
[2021-08-03] MEDS: Budesonide/Formoterol 160/4.5 1 PUFF INH IH SCH ×2 (11:35→20:04)
[2021-08-03] MEDS: ceFAZolin 1,000 MG in 0.9 % Sodium Chloride Mini Bag 100 ML IVP SCH ×2 (12:30→12:58)
[2021-08-03] MEDS ORDERED: Isovue-300 50ML VIAL IVP ONE ×2 (12:42→13:14)
[2021-08-03] MEDS: *HR* HYDROcodone/Acet 5/325 mg TABLET PO PRN (17:17)
[2021-08-04] MEDS: Piperacillin/Tazobactam 3.375 GM in 0.9 % Sodium Chloride Mini Bag 100 ML IVPB SCH ×2 (01:46→09:16)
[2021-08-04 03:03] LABS: Basophils % 0.3 %; Hemoglobin 7.4 g/dL (12.9-16.9); Red Cell Distribution Width 16.3 % (11.5-14.5)
[2021-08-04 03:05] LABS: Eosinophils # 0.3 K/mcL (0.0-0.6); Eosinophils % 2.7 %; Hematocrit 25.9 % (37.5-50.1); Immature Granulocytes % 0.5 % (0-4); Lymphocytes # 1.2 K/mcL (0.6-4.6); Lymphocytes % 12.1 %; Mean Corpuscular HGB Conc 28.6 g/dL (31.6-35.5); Mean Corpuscular Hemoglobin 25.3 pg (28.0-33.3); Mean Corpuscular Volume 88.7 fL (83.0-100.0); Mean Platelet Volume 10.5 fL (9.4-12.4); Monocytes # 0.7 K/mcL (0.0-1.3); Monocytes % 7.4 %; Neutrophils # 7.7 K/mcL (1.6-8.9); Platelet Count 218 K/mcL (140-400); Red Blood Count 2.92 M/mcL (4.19-5.50)
[2021-08-04 03:21] LABS: Calcium 8.4 mg/dL (8.6-10.3); Potassium 4.4 mEq/L (3.5-5.1)
[2021-08-04 03:39] LABS: Hypochromasia Present (Not Present); Platelet Estimate Normal (Normal); Poikilocytosis 1+ (Not Present); Target Cells 1+ (Not Present)
[2021-08-04] MEDS: Chlorhexidine Rinse 15 ML MOUTHWASH MM SCH (09:16)
[2021-08-04] MEDS: PARoxetine 20 MG TABLET PO SCH (09:16)
[2021-08-04] MEDS: Furosemide 20 MG TABLET PO SCH (09:16)
[2021-08-04] MEDS: Gabapentin 300 MG CAPSULE PO SCH (09:16)
[2021-08-04] MEDS: Lactobacillus 1 EACH CAP.SPRINK PO SCH (09:16)
[2021-08-04] MEDS: Multivit/Ca/Min/Fe/FA 1 TAB TABLET PO SCH (10:13)
[2021-08-04] MEDS: Budesonide/Formoterol 160/4.5 1 PUFF INH IH SCH (10:18)
[2021-08-04 11:48] VITALS: BP 112/54; PULSE 69; TEMP 98.9; O2SAT 95
[2021-08-04 13:29] LABS: Influenza A PCR Negative (Negative); Influenza B PCR Negative (Negative); Resp. Syncytial Virus PCR Negative (Negative)
[2021-08-04 13:30] LABS: SARS-CoV-2 by PCR (In House) Negative (Negative)
== END 2021-08-04 14:27 | DRG 466 ==
LOC: 3BNU → SUATTDRO 18:53
PROVIDERS: ADMIT Internal Medicine; ATTEND Internal Medicine

== ENCOUNTER 2021-08-23 00:36 | Inpatient (IN) ==
[2021-08-23] MEDS ORDERED: Naloxone 0.4 MG/ML INJ IVP PRN (02:27)
[2021-08-23] MEDS ORDERED: Ondansetron 4 MG/2 ML VIAL IVP PRN (02:27)
[2021-08-23] MEDS: 0.9 % Sodium Chloride 1,000 ML IVC SCH ×2 (03:08→15:52)
[2021-08-23 03:22] LABS: Basophils % 0.3 %; Hemoglobin 6.6 g/dL (12.9-16.9); Immature Granulocytes % 0.6 % (0-4)
[2021-08-23 03:23] LABS: Eosinophils % 0.1 %; Hematocrit 22.8 % (37.5-50.1); Lymphocytes # 0.6 K/mcL (0.6-4.6); Lymphocytes % 4.8 %; Mean Corpuscular HGB Conc 28.9 g/dL (31.6-35.5); Mean Corpuscular Hemoglobin 25.2 pg (28.0-33.3); Mean Platelet Volume 10.6 fL (9.4-12.4); Monocytes # 0.8 K/mcL (0.0-1.3); Monocytes % 7.2 %; Neutrophils # 10.2 K/mcL (1.6-8.9); Platelet Count 232 K/mcL (140-400); Red Blood Count 2.62 M/mcL (4.19-5.50); Red Cell Distribution Width 17.7 % (11.5-14.5); White Blood Count 11.7 K/mcL (4.3-11.1)
[2021-08-23 03:36] LABS: Calcium 8.6 mg/dL (8.6-10.3); Potassium 4.1 mEq/L (3.5-5.1)
[2021-08-23 03:37] LABS: Albumin 2.8 g/dL (3.5-5.7); Albumin/Globulin Ratio 0.7 (1.1-2.2); Bilirubin,Indirect 0.4 mg/dL (0.0-1.0); Bilirubin,Total 0.4 mg/dL (0.3-1.0); Globulin 3.8 g/dL (2.4-3.5); Total Protein 6.6 g/dL (6.4-8.9)
[2021-08-23 03:38] LABS: INR 1.4; Prothrombin Time 15.5 Seconds (9.4-12.1)
[2021-08-23] MEDS ORDERED: D5% in Water 1,000 ML IVC PRN (03:49)
[2021-08-23] MEDS ORDERED: Dextrose Gel 15 GM/37.5 ML TUBE PO PRN ×2 (03:49)
[2021-08-23] MEDS ORDERED: *HR* Dextrose 50 % in Water (Syg) 50 ML SYRINGE IVP PRN (03:49)
[2021-08-23 04:07] LABS: Platelet Estimate Normal (Normal); Reactive Lymphocytes Present (Not Present)
[2021-08-23] MEDS: Insulin LISPRO 300 UNITS/3 ML VIAL SUBQ SCH ×5 (04:10→20:51)
[2021-08-23 04:23] LABS: Bacteria,Urine Many per hpf (None-Few); Bilirubin,Urine Negative (Negative); Blood,Urine Large (Negative); Clarity,Urine Turbid (Clear); Color,Urine Light-Orange (Yellow); Glucose,Urine (UA) Normal (Normal); Hyaline Casts,Urine Few per lpf (None Seen); Ketones,Urine Negative (Negative); Leukocyte Esterase,Urine Large (Negative); Mucus,Urine Few per lpf (None-Few); Nitrite,Urine Negative (Negative); Protein,Urine 100 mg/dL (Neg-Trace); RBC,Urine TNTC per hpf (0-3); Specific Gravity,Urine 1.017 (1.010-1.025); Squamous Epithelial Cell,Urine Few per hpf (None-Few); Urobilinogen,Urine Normal (Normal); WBC,Urine TNTC per hpf (0-3)
[2021-08-23] MEDS ORDERED: Piperacillin/Tazobactam 3.375 GM in 0.9 % Sodium Chloride Mini Bag 100 ML IVPB SCH (08:00)
[2021-08-23] MEDS: Acetaminophen 325 MG TABLET PO PRN (10:37)
[2021-08-23 11:24] LABS: Bacteria,Urine Few per hpf (None-Few); Bilirubin,Urine Negative (Negative); Blood,Urine Moderate (Negative); Clarity,Urine Turbid (Clear); Color,Urine Yellow (Yellow); Glucose,Urine (UA) 70 mg/dL (Normal); Granular Casts,Urine Few per lpf (None Seen); Ketones,Urine Negative (Negative); Leukocyte Esterase,Urine Large (Negative); Mucus,Urine Few per lpf (None-Few); Nitrite,Urine Negative (Negative); Protein,Urine 100 mg/dL (Neg-Trace); RBC,Urine 15-30 per hpf (0-3); Renal Epithelial Cells,Urine Few per hpf (None-Few); Specific Gravity,Urine 1.018 (1.010-1.025); Squamous Epithelial Cell,Urine Few per hpf (None-Few); Transitional Epi Cells,Urine Few per hpf (None-Few); Urobilinogen,Urine Normal (Normal); WBC,Urine 50-100 per hpf (0-3)
[2021-08-23 11:44] LABS: Hematocrit 23.3 % (37.5-50.1); Hemoglobin 6.8 g/dL (12.9-16.9)
[2021-08-23] MEDS: Ertapenem 1,000 MG in 0.9 % Sodium Chloride Mini Bag 100 ML IVPB SCH (13:39)
[2021-08-23 18:45] LABS: Hematocrit 21.6 % (37.5-50.1); Hemoglobin 6.1 g/dL (12.9-16.9)
[2021-08-23] MEDS ORDERED: Acetaminophen IV 500 MG/50 ML BAG IVPB ONE (19:23)
[2021-08-23] MEDS ORDERED: 0.9 % Sodium Chloride 250 ML ONE (21:08)
[2021-08-24 01:33] LABS: Hematocrit 25.5 % (37.5-50.1); Hemoglobin 7.6 g/dL (12.9-16.9); Mean Corpuscular HGB Conc 29.8 g/dL (31.6-35.5); Mean Corpuscular Hemoglobin 25.9 pg (28.0-33.3); Mean Platelet Volume 9.7 fL (9.4-12.4); Platelet Count 188 K/mcL (140-400); Red Blood Count 2.93 M/mcL (4.19-5.50); Red Cell Distribution Width 16.8 % (11.5-14.5); White Blood Count 7.1 K/mcL (4.3-11.1)
[2021-08-24 01:58] LABS: Potassium 4.3 mEq/L (3.5-5.1)
[2021-08-24] MEDS: Insulin LISPRO 300 UNITS/3 ML VIAL SUBQ SCH ×4 (08:13→19:39)
[2021-08-24] MEDS: Ertapenem 1,000 MG in 0.9 % Sodium Chloride Mini Bag 100 ML IVPB SCH (08:25)
[2021-08-24 09:29] LABS: Hematocrit 24.5 % (37.5-50.1); Hemoglobin 7.4 g/dL (12.9-16.9)
[2021-08-24] MEDS: Acetaminophen 325 MG TABLET PO PRN (14:19)
[2021-08-24] MEDS: Cefepime HCl 1,000 MG in 0.9 % Sodium Chloride Mini Bag 100 ML IVPB SCH (17:12)
[2021-08-24 18:18] LABS: Hemoglobin 7.8 g/dL (12.9-16.9)
[2021-08-24] MEDS: Budesonide/Formoterol 160/4.5 1 PUFF INH IH SCH (21:19)
[2021-08-25 05:46] LABS: Hematocrit 25.4 % (37.5-50.1); Hemoglobin 7.6 g/dL (12.9-16.9); Mean Corpuscular HGB Conc 29.9 g/dL (31.6-35.5); Mean Corpuscular Hemoglobin 25.8 pg (28.0-33.3); Mean Corpuscular Volume 86.1 fL (83.0-100.0); Mean Platelet Volume 10.5 fL (9.4-12.4); Platelet Count 198 K/mcL (140-400); Red Blood Count 2.95 M/mcL (4.19-5.50); Red Cell Distribution Width 16.7 % (11.5-14.5); White Blood Count 7.9 K/mcL (4.3-11.1)
[2021-08-25 06:02] LABS: BUN/Creatinine Ratio 32 (6-26); Blood Urea Nitrogen 35 mg/dL (8-23); Calcium 8.2 mg/dL (8.6-10.3); Carbon Dioxide 31 mEq/L (23-29); Chloride 101 mEq/L (98-107); Glucose 146 mg/dL (70-105); Osmolality,Calculated 293 (280-300); Potassium 4.1 mEq/L (3.5-5.1); Sodium 136 mEq/L (136-145); eGFR For African Americans > 60 (> 60); eGFR For Non-African Americans > 60 (> 60)
[2021-08-25] MEDS: Cefepime HCl 1,000 MG in 0.9 % Sodium Chloride Mini Bag 100 ML IVPB SCH ×2 (06:02→18:45)
[2021-08-25] MEDS: Insulin LISPRO 300 UNITS/3 ML VIAL SUBQ SCH ×4 (07:57→19:55)
[2021-08-25] MEDS: PARoxetine 20 MG TABLET PO SCH (08:01)
[2021-08-25] MEDS: Aspirin 81 MG TAB.CHEW PO SCH (08:01)
[2021-08-25] MEDS: Budesonide/Formoterol 160/4.5 1 PUFF INH IH SCH ×2 (08:08→20:28)
[2021-08-25] MEDS ORDERED: 0.9 % Sodium Chloride 500 ML IVC SCH (08:30)
[2021-08-25] MEDS ORDERED: Isovue-370 500 ML BOTTLE IVP ONE (10:13)
[2021-08-25] MEDS ORDERED: 0.9 % Sodium Chloride 1,000 ML ONE (10:14)
[2021-08-25] MEDS ORDERED: *HR* LORazepam 2 MG/ML VIAL IVP ONE (16:12)
[2021-08-26 01:53] LABS: Hematocrit 25.6 % (37.5-50.1); Hemoglobin 7.7 g/dL (12.9-16.9); Mean Corpuscular HGB Conc 30.1 g/dL (31.6-35.5); Mean Corpuscular Hemoglobin 25.9 pg (28.0-33.3); Mean Corpuscular Volume 86.2 fL (83.0-100.0); Mean Platelet Volume 10.2 fL (9.4-12.4); Platelet Count 207 K/mcL (140-400); Red Blood Count 2.97 M/mcL (4.19-5.50); Red Cell Distribution Width 16.8 % (11.5-14.5); White Blood Count 7.7 K/mcL (4.3-11.1)
[2021-08-26 02:12] LABS: BUN/Creatinine Ratio 26 (6-26); Blood Urea Nitrogen 25 mg/dL (8-23); Calcium 8.4 mg/dL (8.6-10.3); Carbon Dioxide 31 mEq/L (23-29); Chloride 104 mEq/L (98-107); Glucose 114 mg/dL (70-105); Osmolality,Calculated 293 (280-300); Sodium 139 mEq/L (136-145); eGFR For African Americans > 60 (> 60); eGFR For Non-African Americans > 60 (> 60)
[2021-08-26] MEDS: Cefepime HCl 1,000 MG in 0.9 % Sodium Chloride Mini Bag 100 ML IVPB SCH (05:10)
[2021-08-26] MEDS: Insulin LISPRO 300 UNITS/3 ML VIAL SUBQ SCH ×2 (07:19→11:35)
[2021-08-26] MEDS: Budesonide/Formoterol 160/4.5 1 PUFF INH IH SCH (07:24)
[2021-08-26] MEDS: Aspirin 81 MG TAB.CHEW PO SCH (08:32)
[2021-08-26] MEDS: PARoxetine 20 MG TABLET PO SCH (08:32)
[2021-08-26] MEDS ORDERED: levoFLOXacin 750 MG/150 ML 750 MG/150 ML BAG IVPB SCH (09:45)
[2021-08-26 11:00] VITALS: BP 122/65; PULSE 71; TEMP 98.1; O2SAT 97
[2021-08-26 11:19] LABS: Influenza A PCR Negative (Negative); Influenza B PCR Negative (Negative); Resp. Syncytial Virus PCR Negative (Negative)
[2021-08-26 11:29] LABS: SARS-CoV-2 by PCR (In House) Negative (Negative)
[2021-08-26] MEDS ORDERED: Cefepime HCl 2,000 MG in 0.9 % Sodium Chloride Mini Bag 100 ML IVPB SCH (18:00)
== END 2021-08-26 15:13 | DRG 466 ==
LOC: 2NNU → SUATTDRO 02:00 → OBSVTOIN 02:00 → 2ANU 08-25 11:25
PROVIDERS: ADMIT Internal Medicine; ATTEND Internal Medicine

== ENCOUNTER 2021-10-29 18:55 | Inpatient (IN) ==
[2021-10-29] MEDS ORDERED: Naloxone 0.4 MG/ML INJ IVP PRN (22:07)
[2021-10-29] MEDS ORDERED: Ondansetron 4 MG/2 ML VIAL IVP PRN (22:07)
[2021-10-29] MEDS ORDERED: Acetaminophen 325 MG TABLET PO PRN (22:07)
[2021-10-29] MEDS ORDERED: 0.9 % Sodium Chloride 1,000 ML IVC SCH (22:15)
[2021-10-29] MEDS ORDERED: D5% in Water 1,000 ML IVC PRN (22:33)
[2021-10-29] MEDS ORDERED: Dextrose Gel 15 GM/37.5 ML TUBE PO PRN ×2 (22:33)
[2021-10-29] MEDS ORDERED: *HR* Dextrose 50 % in Water (Syg) 50 ML SYRINGE IVP PRN (22:33)
[2021-10-29 22:50] LABS: Hemoglobin 8.7 g/dL (12.9-16.9); Immature Granulocytes % 0.5 % (0-4); Lymphocytes # 0.4 K/mcL (0.6-4.6); Lymphocytes % 5.5 %; Mean Corpuscular Hemoglobin 24.1 pg (28.0-33.3); Mean Corpuscular Volume 83.1 fL (83.0-100.0); Mean Platelet Volume 9.8 fL (9.4-12.4); Monocytes # 0.3 K/mcL (0.0-1.3); Monocytes % 4.4 %; Neutrophils # 6.9 K/mcL (1.6-8.9); Platelet Count 283 K/mcL (140-400); Red Blood Count 3.61 M/mcL (4.19-5.50); Red Cell Distribution Width 16.7 % (11.5-14.5); Segmented Neutrophils % 89.6 %; White Blood Count 7.7 K/mcL (4.3-11.1)
[2021-10-29 22:57] LABS: INR 1.2; Prothrombin Time 13.5 Seconds (9.4-12.1)
[2021-10-29 23:00] LABS: Activated Partial Thrombo Time 45.7 Seconds (26.0-36.0)
[2021-10-29] MEDS: Insulin LISPRO 300 UNITS/3 ML VIAL SUBQ SCH (23:04)
[2021-10-29] MEDS: Insulin DETEMIR 100 UNIT/ML X5UNITS SUBQ SCH (23:04)
[2021-10-29 23:14] LABS: Albumin 2.9 g/dL (3.5-5.7); Albumin/Globulin Ratio 0.8 (1.1-2.2); Bilirubin,Total 0.2 mg/dL (0.3-1.0); Calcium 8.5 mg/dL (8.6-10.3); Globulin 3.7 g/dL (2.4-3.5); Potassium 4.2 mEq/L (3.5-5.1); Total Protein 6.6 g/dL (6.4-8.9)
[2021-10-29 23:18] LABS: Troponin I 0.21 ng/mL (< 0.04)
[2021-10-30] MEDS: Insulin LISPRO 300 UNITS/3 ML VIAL SUBQ SCH ×4 (07:34→15:53)
[2021-10-30] MEDS: Ertapenem 1,000 MG in 0.9 % Sodium Chloride Mini Bag 100 ML IVPB SCH (08:20)
[2021-10-30] MEDS ORDERED: Perflutren Lipid Microsphere 1.3 ML in 0.9 % Sodium Chloride 8.7 ML IVP PRN (13:27)
[2021-10-30] MEDS: Metoprolol XL (24 HR) Succ 25 MG TAB.ER.24H PO SCH (13:59)
[2021-10-30] MEDS: Aspirin Enteric Coated 81 MG Tablet PO SCH (14:00)
[2021-10-30 17:34] LABS: Basophils % 0.1 %; Hematocrit 27.1 % (37.5-50.1); Immature Granulocytes % 0.6 % (0-4); Lymphocytes # 0.9 K/mcL (0.6-4.6); Lymphocytes % 7.8 %; Mean Corpuscular HGB Conc 29.5 g/dL (31.6-35.5); Mean Corpuscular Hemoglobin 24.1 pg (28.0-33.3); Mean Corpuscular Volume 81.6 fL (83.0-100.0); Mean Platelet Volume 10.4 fL (9.4-12.4); Monocytes # 0.7 K/mcL (0.0-1.3); Neutrophils # 10.2 K/mcL (1.6-8.9); Platelet Count 280 K/mcL (140-400); Red Blood Count 3.32 M/mcL (4.19-5.50); Red Cell Distribution Width 16.7 % (11.5-14.5); Segmented Neutrophils % 85.5 %
[2021-10-30 17:35] LABS: White Blood Count 11.9 K/mcL (4.3-11.1)
[2021-10-30 17:55] LABS: BUN/Creatinine Ratio 51 (6-26); Blood Urea Nitrogen 69 mg/dL (8-23); Calcium 8.5 mg/dL (8.6-10.3); Carbon Dioxide 34 mEq/L (23-29); Chloride 102 mEq/L (98-107); Glucose 135 mg/dL (70-105); Osmolality,Calculated 314 (280-300); Potassium 4.3 mEq/L (3.5-5.1); Sodium 141 mEq/L (136-145); eGFR For African Americans > 60 (> 60); eGFR For Non-African Americans 51 (> 60)
[2021-10-30 17:59] LABS: Troponin I 0.37 ng/mL (< 0.04)
[2021-10-30] MEDS ORDERED: *HR* Heparin 5,000 UNIT/ML VIAL IVP PRN ×2 (18:10)
[2021-10-30 18:43] LABS: Estimated Average Glucose 157 mg/dl; Hemoglobin A1C 7.1 %
[2021-10-30] MEDS: *HR* Heparin 5,000 UNIT/ML VIAL IVP ONE ×4 (18:45→19:00)
[2021-10-30] MEDS: Heparin 25,000UNIT/250ML 1/2NS 25,000 UNIT/250 ML IV.SOLN IVC SCH ×3 (18:47→19:00)
[2021-10-30 19:20] LABS: Hematocrit 28.1 % (37.5-50.1); Hemoglobin 8.4 g/dL (12.9-16.9); Mean Corpuscular HGB Conc 29.9 g/dL (31.6-35.5); Mean Corpuscular Hemoglobin 24.6 pg (28.0-33.3); Mean Corpuscular Volume 82.2 fL (83.0-100.0); Mean Platelet Volume 10.3 fL (9.4-12.4); Platelet Count 282 K/mcL (140-400); Red Blood Count 3.42 M/mcL (4.19-5.50); Red Cell Distribution Width 16.7 % (11.5-14.5); White Blood Count 12.4 K/mcL (4.3-11.1)
[2021-10-30 19:33] LABS: Heparin anti-factor XA UFH 0.19 IU/mL (0.30-0.70)
[2021-10-30] MEDS: Insulin DETEMIR 100 UNIT/ML X5UNITS SUBQ SCH (20:32)
[2021-10-30] MEDS ORDERED: *HR* Heparin 5,000 UNIT/ML VIAL SQ SCH (22:00)
[2021-10-31 04:16] LABS: Basophils % 0.1 %; Eosinophils % 0.1 %; Hematocrit 29.6 % (37.5-50.1); Hemoglobin 8.6 g/dL (12.9-16.9); Immature Granulocytes % 0.3 % (0-4); Lymphocytes % 10.5 %; Mean Corpuscular HGB Conc 29.1 g/dL (31.6-35.5); Mean Corpuscular Hemoglobin 24.1 pg (28.0-33.3); Mean Corpuscular Volume 82.9 fL (83.0-100.0); Mean Platelet Volume 10.4 fL (9.4-12.4); Monocytes # 0.9 K/mcL (0.0-1.3); Monocytes % 8.8 %; Neutrophils # 7.8 K/mcL (1.6-8.9); Platelet Count 287 K/mcL (140-400); Red Blood Count 3.57 M/mcL (4.19-5.50); Red Cell Distribution Width 16.7 % (11.5-14.5); Segmented Neutrophils % 80.2 %; White Blood Count 9.7 K/mcL (4.3-11.1)
[2021-10-31 04:39] LABS: BUN/Creatinine Ratio 50 (6-26); Blood Urea Nitrogen 66 mg/dL (8-23); Calcium 8.8 mg/dL (8.6-10.3); Carbon Dioxide 35 mEq/L (23-29); Chloride 104 mEq/L (98-107); Glucose 109 mg/dL (70-105); Osmolality,Calculated 316 (280-300); Sodium 143 mEq/L (136-145); eGFR For African Americans > 60 (> 60); eGFR For Non-African Americans 53 (> 60)
[2021-10-31] MEDS: Insulin LISPRO 300 UNITS/3 ML VIAL SUBQ SCH ×3 (07:31→16:52)
[2021-10-31] MEDS: Aspirin Enteric Coated 81 MG Tablet PO SCH (07:57)
[2021-10-31] MEDS: Metoprolol XL (24 HR) Succ 25 MG TAB.ER.24H PO SCH (07:57)
[2021-10-31] MEDS: Ertapenem 1,000 MG in 0.9 % Sodium Chloride Mini Bag 100 ML IVPB SCH (07:57)
[2021-10-31] MEDS: Budesonide/Formoterol 160/4.5 1 PUFF INH IH SCH (20:06)
[2021-10-31] MEDS: Insulin DETEMIR 100 UNIT/ML X5UNITS SUBQ SCH (20:39)
[2021-11-01 06:36] LABS: Basophils % 0.2 %; Eosinophils % 0.4 %; Hematocrit 28.3 % (37.5-50.1); Hemoglobin 8.3 g/dL (12.9-16.9); Immature Granulocytes % 0.4 % (0-4); Lymphocytes % 17.9 %; Mean Corpuscular HGB Conc 29.3 g/dL (31.6-35.5); Mean Corpuscular Hemoglobin 24.6 pg (28.0-33.3); Mean Platelet Volume 10.3 fL (9.4-12.4); Monocytes # 0.8 K/mcL (0.0-1.3); Monocytes % 14.3 %; Neutrophils # 3.7 K/mcL (1.6-8.9); Platelet Count 238 K/mcL (140-400); Red Blood Count 3.37 M/mcL (4.19-5.50); Red Cell Distribution Width 16.9 % (11.5-14.5); Segmented Neutrophils % 66.8 %; White Blood Count 5.5 K/mcL (4.3-11.1)
[2021-11-01 07:03] LABS: BUN/Creatinine Ratio 49 (6-26); Blood Urea Nitrogen 52 mg/dL (8-23); Calcium 8.6 mg/dL (8.6-10.3); Carbon Dioxide 36 mEq/L (23-29); Chloride 105 mEq/L (98-107); Glucose 99 mg/dL (70-105); Osmolality,Calculated 310 (280-300); Potassium 4.2 mEq/L (3.5-5.1); Sodium 143 mEq/L (136-145); eGFR For African Americans > 60 (> 60); eGFR For Non-African Americans > 60 (> 60)
[2021-11-01] MEDS ORDERED: Furosemide 20 MG TABLET PO SCH (08:00)
[2021-11-01] MEDS: Budesonide/Formoterol 160/4.5 1 PUFF INH IH SCH ×2 (08:05→20:03)
[2021-11-01] MEDS: Insulin LISPRO 300 UNITS/3 ML VIAL SUBQ SCH ×3 (10:11→16:25)
[2021-11-01] MEDS: Aspirin Enteric Coated 81 MG Tablet PO SCH (10:18)
[2021-11-01] MEDS: PARoxetine 20 MG TABLET PO SCH (10:18)
[2021-11-01] MEDS: Metoprolol XL (24 HR) Succ 25 MG TAB.ER.24H PO SCH (10:18)
[2021-11-01] MEDS: Ertapenem 1,000 MG in 0.9 % Sodium Chloride Mini Bag 100 ML IVPB SCH (10:19)
[2021-11-01 16:50] LABS: Bilirubin,Urine Negative (Negative); Blood,Urine Moderate (Negative); Clarity,Urine Clear (Clear); Color,Urine Colorless (Yellow); Glucose,Urine (UA) Normal (Normal); Ketones,Urine Negative (Negative); Leukocyte Esterase,Urine Negative (Negative); Mucus,Urine Few per lpf (None-Few); Nitrite,Urine Negative (Negative); Protein,Urine 70 mg/dL (Neg-Trace); RBC,Urine 30-50 per hpf (0-3); Specific Gravity,Urine 1.012 (1.010-1.025); Squamous Epithelial Cell,Urine Few per hpf (None-Few); Urobilinogen,Urine Normal (Normal)
[2021-11-01] MEDS ORDERED: Doxycycline 100 MG in 0.9 % Sodium Chloride Mini Bag 100 ML IVPB SCH (18:00)
[2021-11-01] MEDS ORDERED: Furosemide 20 MG/2 ML VIAL IVP ONE (18:02)
[2021-11-01] MEDS: Insulin DETEMIR 100 UNIT/ML X5UNITS SUBQ SCH (21:33)
[2021-11-01 23:25] LABS: Adenovirus Not Detected (Not Detect); Coronavirus 229E Not Detected (Not Detect); Coronavirus HKU1 Not Detected (Not Detect); Coronavirus NL63 Not Detected (Not Detect); Coronavirus OC43 Not Detected (Not Detect); Human Metapneumovirus Not Detected (Not Detect); Human Rhinovirus/Enterovirus Not Detected (Not Detect); SARS-CoV-2 Not Detected (Not Detect)
[2021-11-01 23:28] LABS: Bordetella Pertussis Not Detected (Not Detect); Chlamydophila pneumoniae Not Detected (Not Detect); Influenza A Subtype 2009 H1 Not Detected (Not Detect); Influenza B Not Detected (Not Detect); Mycoplasma pneumoniae Not Detected (Not Detect); Parainfluenza Virus 1 Not Detected (Not Detect); Parainfluenza Virus 2 Not Detected (Not Detect); Parainfluenza Virus 3 Not Detected (Not Detect); Parainfluenza Virus 4 Not Detected (Not Detect); Respiratory Syncytial Virus Not Detected (Not Detect)
[2021-11-02] MEDS: Insulin LISPRO 300 UNITS/3 ML VIAL SUBQ SCH ×3 (07:23→16:20)
[2021-11-02] MEDS: Budesonide/Formoterol 160/4.5 1 PUFF INH IH SCH ×2 (07:36→20:12)
[2021-11-02] MEDS: Ertapenem 1,000 MG in 0.9 % Sodium Chloride Mini Bag 100 ML IVPB SCH (08:26)
[2021-11-02] MEDS: Metoprolol XL (24 HR) Succ 25 MG TAB.ER.24H PO SCH (08:26)
[2021-11-02] MEDS: PARoxetine 20 MG TABLET PO SCH (08:26)
[2021-11-02] MEDS: Aspirin Enteric Coated 81 MG Tablet PO SCH (08:26)
[2021-11-02] MEDS ORDERED: Furosemide 20 MG/2 ML VIAL IVP SCH (09:00)
[2021-11-02] MEDS: Cefepime HCl 2,000 MG in 0.9 % Sodium Chloride Mini Bag 100 ML IVPB SCH (15:09)
[2021-11-02] MEDS: Melatonin 3 MG TABLET PO PRN (21:09)
[2021-11-02] MEDS: Insulin DETEMIR 100 UNIT/ML X5UNITS SUBQ SCH (21:42)
[2021-11-03] MEDS: Cefepime HCl 2,000 MG in 0.9 % Sodium Chloride Mini Bag 100 ML IVPB SCH ×2 (02:37→13:43)
[2021-11-03 06:51] LABS: Hematocrit 29.3 % (37.5-50.1); Hemoglobin 8.6 g/dL (12.9-16.9); Mean Corpuscular HGB Conc 29.4 g/dL (31.6-35.5); Mean Corpuscular Hemoglobin 24.6 pg (28.0-33.3); Mean Corpuscular Volume 83.7 fL (83.0-100.0); Mean Platelet Volume 10.6 fL (9.4-12.4); Platelet Count 221 K/mcL (140-400); Red Cell Distribution Width 16.9 % (11.5-14.5); White Blood Count 7.6 K/mcL (4.3-11.1)
[2021-11-03] MEDS: Budesonide/Formoterol 160/4.5 1 PUFF INH IH SCH ×2 (07:45→19:51)
[2021-11-03] MEDS: Furosemide 20 MG TABLET PO SCH (08:59)
[2021-11-03] MEDS: Aspirin Enteric Coated 81 MG Tablet PO SCH (08:59)
[2021-11-03] MEDS: PARoxetine 20 MG TABLET PO SCH (08:59)
[2021-11-03] MEDS: Metoprolol XL (24 HR) Succ 25 MG TAB.ER.24H PO SCH (08:59)
[2021-11-03] MEDS: Insulin LISPRO 300 UNITS/3 ML VIAL SUBQ SCH ×3 (09:00→16:25)
[2021-11-03 10:15] LABS: BUN/Creatinine Ratio 39 (6-26); Blood Urea Nitrogen 46 mg/dL (8-23); Calcium 8.8 mg/dL (8.6-10.3); Carbon Dioxide 38 mEq/L (23-29); Chloride 102 mEq/L (98-107); Glucose 105 mg/dL (70-105); Osmolality,Calculated 302 (280-300); Potassium 4.1 mEq/L (3.5-5.1); Sodium 140 mEq/L (136-145); eGFR For African Americans > 60 (> 60); eGFR For Non-African Americans > 60 (> 60)
[2021-11-03] MEDS: Melatonin 3 MG TABLET PO PRN (21:52)
[2021-11-03] MEDS: Insulin DETEMIR 100 UNIT/ML X5UNITS SUBQ SCH (22:05)
[2021-11-04] MEDS: Cefepime HCl 2,000 MG in 0.9 % Sodium Chloride Mini Bag 100 ML IVPB SCH ×2 (02:36→15:28)
[2021-11-04] MEDS: Insulin LISPRO 300 UNITS/3 ML VIAL SUBQ SCH ×3 (06:55→16:08)
[2021-11-04] MEDS: Budesonide/Formoterol 160/4.5 1 PUFF INH IH SCH ×2 (07:51→20:18)
[2021-11-04] MEDS: Metoprolol XL (24 HR) Succ 25 MG TAB.ER.24H PO SCH (09:27)
[2021-11-04] MEDS: Aspirin Enteric Coated 81 MG Tablet PO SCH (09:27)
[2021-11-04] MEDS: PARoxetine 20 MG TABLET PO SCH (09:27)
[2021-11-04] MEDS: Furosemide 20 MG TABLET PO SCH (09:27)
[2021-11-04] MEDS: Melatonin 3 MG TABLET PO PRN (20:26)
[2021-11-04] MEDS: Insulin DETEMIR 100 UNIT/ML X5UNITS SUBQ SCH (20:28)
[2021-11-04] MEDS: Nystatin POWDER 30 GM BOTTLE TP SCH (20:35)
[2021-11-05] MEDS: Cefepime HCl 2,000 MG in 0.9 % Sodium Chloride Mini Bag 100 ML IVPB SCH ×2 (02:54→15:06)
[2021-11-05] MEDS: Insulin LISPRO 300 UNITS/3 ML VIAL SUBQ SCH ×2 (08:03→12:34)
[2021-11-05] MEDS: Metoprolol XL (24 HR) Succ 25 MG TAB.ER.24H PO SCH (10:29)
[2021-11-05] MEDS: Aspirin Enteric Coated 81 MG Tablet PO SCH (10:29)
[2021-11-05] MEDS: PARoxetine 20 MG TABLET PO SCH (10:30)
[2021-11-05] MEDS: Furosemide 20 MG TABLET PO SCH (10:30)
[2021-11-05] MEDS: Nystatin POWDER 30 GM BOTTLE TP SCH (10:30)
[2021-11-05] MEDS: Budesonide/Formoterol 160/4.5 1 PUFF INH IH SCH (10:54)
[2021-11-05 12:00] VITALS: TEMP 98
[2021-11-05 15:15] LABS: Influenza B PCR Negative (Negative); Resp. Syncytial Virus PCR Negative (Negative); SARS-CoV-2 by PCR (In House) Negative (Negative)
[2021-11-05 15:16] LABS: Influenza A PCR Positive (Negative)
[2021-11-05 15:27] VITALS: BP 107/60; PULSE 61; O2SAT 100
== END 2021-11-05 16:03 | DRG 720 ==
LOC: 3BNU → SUATTDRO 10-30 15:41
PROVIDERS: ADMIT Student in an Organized Health Care Education/Training Program; ATTEND Registered Nurse